=== PATIENT | female | born 1995 | race Caucasian/White ===

== ENCOUNTER 2019-12-28 10:43 | Emergency (ER) | payer SELFPAY ==
[2019-12-28 10:47] VITALS: BP 113/72; PULSE 68; RESP 17; TEMP 36.4; O2SAT 100; BMI 22.3
--- NOTE | 2019-12-28 11:05 | ED_ITS ---
HPI - General Adult General: Chief complaint: General Medical Stated complaint: LOW BLOOD PRESSURE, CHEST PAIN Time Seen by Provider: 12/28/19 11:05 History of Present Illness: HPI narrative: 24-year-old female presents emergency room after near syncopal episode she denies any chest pain that began immediately after she had stood up. She has had this multiple times in the past. She is had work-up for it in years past with not been able to find anything. In discussing with her though that she has not seen cardiology for this previously usually associated with stress or immediately after standing. She is relatively asymptomatic on arrival here Associated symptoms: Deny chest pain, dyspnea, malaise, nausea, rash or vomiting Review of Systems Const: Denies: fever, chills, body aches, change in appetite, fatigue or malaise ENMT: Denies: throat pain, ear pain, nasal discharge or nasal congestion Card: Denies: chest pain, edema, shortness of breath on exertion or shortness of breath when lying down Resp: Denies: shortness of breath, productive cough or non-productive cough GI: Denies: abdominal pain, nausea, vomiting, vomiting blood, coffee grounds in vomit, diarrhea, constipation, bloating, blood in stool or black tarry stool : Denies: flank pain, difficulty urinating, painful urination, urinary frequency or urinary urgency Skin/Breast: Denies: rash or itching PFSH ED PFSH: Social History Smoking and tobacco status: never smoked Physical Exam Const: COMMON NORMALS: no apparent distress GENERAL APPEARANCE: cooperative and comfortable ORIENTATION/CONSCIOUSNESS: Yes awake, Yes oriented to person, Yes oriented to place and Yes oriented to time HENMT: COMMON NORMALS: normocephalic, head/scalp atraumatic, hearing grossly normal bilaterally, external ears normal, EAC's normal, TM's normal bilaterally, nasal mucous membranes and turbinates normal, moist oral mucous membranes and oropharynx normal HEAD & SCALP: normocephalic and atraumatic NOSE: nasal mucous membranes and turbinates normal EXTERNAL EAR: Yes external ears normal EXTERNAL AUDITORY CANAL: EAC's normal TYMPANIC MEMBRANE: TM's normal bilaterally Eye: COMMON NORMALS: PERRL, EOMs intact bilaterally, conjunctivae normal and no scleral icterus CONJUNCTIVA: Yes conjunctivae normal PUPIL: Yes PERRL Neck/C-Spine: COMMON NORMALS: full ROM, no lymphadenopathy, supple and no JVD Lymph: LYMPHATIC: no lymphadenopathy noted and no lymphedema noted Resp: COMMON NORMALS: normal respiratory effort, no retractions, no use of accessory muscles and clear to auscultation bilaterally AUSCULTATION: clear to auscultation bilaterally Cardio: COMMON NORMALS: no JVD, regular rate, regular rhythm and no murmurs RATE: regular rate RHYTHM: regular rhythm GI: COMMON NORMALS: soft to palpation and no hepatosplenomegaly AUSCULTATION: Yes normoactive bowel sounds PALPATION: Yes soft, No tender, No guarding and Yes no hepatosplenomegaly Extremity: COMMON NORMALS: normal to inspection, normal capillary refill, no clubbing, cyanosis or edema, no calf tenderness and no pedal edema Neuro: SENSORIUM/ORIENTATION: Yes oriented to person, Yes oriented to place and Yes oriented to time Skin: COMMON NORMALS: no rashes or lesions noted GENERAL SKIN EXAM: no rashes or lesions noted Course ED course: Patient essentially asymptomatic now discussed different options I think she can go home she is wanting to consider having children in the near future recommend that she have further work-up including possible cardiac pathology evaluation to have this thoroughly evaluated prior to becoming . Vital Signs: Vital signs: Vital Signs Temperature 97.6 F 12/28/19 10:47 Pulse Rate 90 12/28/19 12:54 Respiratory Rate 16 12/28/19 12:54 Blood Pressure 125/76 12/28/19 12:54 Pulse Oximetry 100 12/28/19 12:54 MDM - General Adult Lab Data: Labs: Lab Results 12/28/19 12/28/19 12/28/19 Range/Units 11:27 11:27 11:34 WBC 8.7 (4.0-10.0) 10^3/ uL RBC 4.59 (4.1-5.3) 10^6/u L Hgb 14.0 (11.5-15.3) g/dL Hct 42.4 (37.0-47.0) % MCV 92.4 (81-99) fL MCH 30.5 (28.0-34.0) pg MCHC 33.0 (30.0-36.0) g/dL RDW 12.4 (12.1-15.1) % Plt Count 250 (130-400) 10^3/c mm MPV 10.9 H (7.4-10.4) fL Neut % (Auto) 60.0 % Lymph % (Auto) 31.4 % Mcdonough % (Auto) 6.1 % Eos % (Auto) 1.8 % Baso % (Auto) 0.2 % Neut # (Auto) 5.2 (1.8-7.7) 10^3/u L Lymph # (Auto) 2.7 (0.8-4.8) 10^3/u L Mcdonough # (Auto) 0.5 (0.2-0.9) 10^3/u L Eos # (Auto) 0.2 (0.0-0.8) 10^3/u L Baso # (Auto) 0.0 (0.0-0.1) 10^3/u L Nucleated RBC % (a uto) 0 % Nucleated RBCs # 0.0 /100WBC Sodium (136-145) mmol/L Potassium (3.5-5.1) mmol/L Chloride (98-107) mmol/L Carbon Dioxide (22-29) mmol/L Anion Gap (5-19) BUN (6-20) mg/dL Creatinine (0.5-0.9) mg/dL GFR Calculation (90-130) mL/min Glucose (65-115) mg/dL Calcium (8.5-10.5) mg/dL Total Bilirubin (0.15-1.2) mg/dL AST (0-32) U/L ALT (0-33) U/L Alkaline Phosphata se (35-105) IU/L Total Protein (6.6-8.7) g/dL Albumin (3.5-5.2) g/dL Globulin (1.3-4.6) g/dL HCG, Qual Negative (Negative) Urine Color Yellow (Yellow) Urine Appearance Clear (CLEAR) Urine pH 5 (5-7) Ur Specific Gravit y 1.025 (1.005-1.030) Urine Protein 1+ H (Negative) Urine Glucose (UA) Norm (Normal) Urine Ketones Negative (Negative) Urine Blood Neg (Negative) Urine Nitrate Negative (Negative) Urine Bilirubin Neg (NEGATIVE) Urine Urobilinogen Norm (Negative) mg/dL Ur Leukocyte Eva ase Negative (Negative) Urine RBC None (0-2) /hpf Urine WBC 0-4 H (0-5) /hpf Ur Squamous Epith Cells 5-10 H (0-5) Urine Bacteria 1+ H (NONE) Urine Mucus 2+ 02/ Range/Units 11:34 WBC (4.0-10.0) 10^3/ uL RBC (4.1-5.3) 10^6/u L Hgb (11.5-15.3) g/dL Hct (37.0-47.0) % MCV (81-99) fL MCH (28.0-34.0) pg MCHC (30.0-36.0) g/dL RDW (12.1-15.1) % Plt Count (130-400) 10^3/c mm MPV (7.4-10.4) fL Neut % (Auto) % Lymph % (Auto) % Mcdonough % (Auto) % Eos % (Auto) % Baso % (Auto) % Neut # (Auto) (1.8-7.7) 10^3/u L Lymph # (Auto) (0.8-4.8) 10^3/u L Mcdonough # (Auto) (0.2-0.9) 10^3/u L Eos # (Auto) (0.0-0.8) 10^3/u L Baso # (Auto) (0.0-0.1) 10^3/u L Nucleated RBC % (a uto) % Nucleated RBCs # /100WBC Sodium 136 (136-145) mmol/L Potassium 3.7 (3.5-5.1) mmol/L Chloride 98 (98-107) mmol/L Carbon Dioxide 26 (22-29) mmol/L Anion Gap 15.7 (5-19) BUN 15 (6-20) mg/dL Creatinine 0.7 (0.5-0.9) mg/dL GFR Calculation 103.7 (90-130) mL/min Glucose 103 (65-115) mg/dL Calcium 10.1 (8.5-10.5) mg/dL Total Bilirubin 0.6 (0.15-1.2) mg/dL AST 21 (0-32) U/L ALT 17 (0-33) U/L Alkaline Phosphata se 83 (35-105) IU/L Total Protein 8.6 (6.6-8.7) g/dL Albumin 5.0 (3.5-5.2) g/dL Globulin 3.6 (1.3-4.6) g/dL HCG, Qual (Negative) Urine Color (Yellow) Urine Appearance (CLEAR) Urine pH (5-7) Ur Specific Gravit y (1.005-1.030) Urine Protein (Negative) Urine Glucose (UA) (Normal) Urine Ketones (Negative) Urine Blood (Negative) Urine Nitrate (Negative) Urine Bilirubin (NEGATIVE) Urine Urobilinogen (Negative) mg/dL Ur Leukocyte Eva ase (Negative) Urine RBC (0-2) /hpf Urine WBC (0-5) /hpf Ur Squamous Epith Cells (0-5) Urine Bacteria (NONE) Urine Mucus Discharge Plan Discharge Patient Disposition: Home, Self-Care Clinical Impression: Near syncope Condition: Stable Prescriptions: No Action melatonin 10 mg Tablet 10 mg PO BEDTIME RF: 0 1 tab PO DAILY RF: 0 Discharge Orders: Discharge Order (Routine); Ordered 12/28/19 Ordered By: Krzysztof Mena Referrals: May Salazar DO [Primary Care Provider] - Activity Restrictions/Additional Instructions: Follow-up with your primary care provider within the next week. Return if has further problems. 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
--- NOTE | 2019-12-28 11:11 | PC.NURSE ---
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 States she began to have familiar symptoms of feeling sick, light headed, and seeing black spots/floaters in her eyes. Patient states she has done this before. Patient states she also felt like she was going to puke and have diarrhea at the same time but did not. Patient was taken by clinic staff and sat down, her BP at that time was 80/60. She states her symptoms are better since arrival but she is unsure why she has had them. Will continue to monitor.
[2019-12-28 11:21] VITALS: BP 118/74; PULSE 69; RESP 18; O2SAT 98
[2019-12-28 11:30] VITALS: BP 107/72; BP 118/74; BP 118/75; PULSE 63; PULSE 66; PULSE 94
[2019-12-28 11:32] VITALS: BP 137/80; PULSE 72; RESP 16; O2SAT 98
[2019-12-28 11:41] LABS: Basophils % 0.2 %; Eosinophils # 0.2 10^3/uL (0.0-0.8); Eosinophils % 1.8 %; Hematocrit 42.4 % (37.0-47.0); Lymphocytes # 2.7 10^3/uL (0.8-4.8); Lymphocytes % 31.4 %; Mean Corpuscular Hemoglobin 30.5 pg (28.0-34.0); Mean Corpuscular Volume 92.4 fL (81-99); Mean Platelet Volume 10.9 fL (7.4-10.4); Monocytes # 0.5 10^3/uL (0.2-0.9); Monocytes % 6.1 %; Neutrophils # 5.2 10^3/uL (1.8-7.7); Nucleated Red Blood Cells % 0 %; Platelet Count 250 10^3/cmm (130-400); Red Blood Count 4.59 10^6/uL (4.1-5.3); Red Cell Distribution Width 12.4 % (12.1-15.1); White Blood Count 8.7 10^3/uL (4.0-10.0)
[2019-12-28 11:41] LABS: HCG Qualitative Urine. Negative (Negative)
[2019-12-28 11:42] LABS: Add Urine Microscopic? YES; Bilirubin Urine Neg (NEGATIVE); Blood Urine Neg (Negative); Glucose Urine UA Norm (Normal); Ketones Urine Negative (Negative); Leukocyte Esterase Urine Negative (Negative); Nitrate Urine Negative (Negative); Protein Urine 1+ (Negative); Specific Gravity, Urine 1.025 (1.005-1.030); Urine Appearance Clear (CLEAR); Urine Color Yellow (Yellow); Urobilinogen Urine Norm (Negative); pH Urine 5 (5-7)
[2019-12-28 11:51] LABS: Bacteria Urine 1+; Mucus Urine 2+
[2019-12-28 11:53] LABS: Add Urine Culture? No; WBC Urine 0-4 /hpf (0-5)
[2019-12-28] MEDS: sodium chloride 0.9% 1,000 ML 999 ML IV (11:54)
[2019-12-28 11:59] LABS: Alanine Aminotransferase 17 U/L (0-33); Alkaline Phosphatase 83 IU/L (35-105); Anion Gap 15.7 (5-19); Aspartate Amino Transferase 21 U/L (0-32); Blood Urea Nitrogen 15 mg/dL (6-20); Calcium 10.1 mg/dL (8.5-10.5); Carbon Dioxide 26 mmol/L (22-29); Chloride 98 mmol/L (98-107); Globulin 3.6 g/dL (1.3-4.6); Glomerular Filtration Rate 103.7 mL/min (90-130); Glucose 103 mg/dL (65-115); Potassium 3.7 mmol/L (3.5-5.1); Sodium 136 mmol/L (136-145); Total Bilirubin 0.6 mg/dL (0.15-1.2); Total Protein 8.6 g/dL (6.6-8.7)
--- NOTE | 2019-12-28 12:04 | XR_ITS ---
WS: [id number] XR chest 1V portable [id number] REASON FOR EXAM: chest pain FINDINGS: Calcified granulomas are noted in both lung sheehan similar to the previous exam March 13, 2019 . The heart and mediastinal interfaces are normal. The lung sheehan are well aerated. There is no evidence of pneumothorax, pleural reaction, pulmonary e mariam, pleural effusion, or mass effect. There is evidence of calcification over the left hemidiaphrag m history of asbestos should be ruled out. The hilum and apices are normal. XR/XR chest 1V portable [id number] IMPRESSION: No active cardiopulmonary changes. There is calcification over the left hemidiaphragm search for a history of asbe stosis should be ruled out. There is no acute findings in the lungs.
--- NOTE | 2019-12-28 12:04 | ECG_ITS ---
Measurements Intervals [place] Rate: 66 P: 55 NM: 169 QRS: 51 QRSD: 80 T: 45 QT: 385 QTc: 405 SINUS RHYTHM POSSIBLE LEFT ATRIAL ENLARGEMENT [-0.1mV P WAVE IN V1/V2] LOW QRS VOLTAGE IN PRECORDIAL LEADS [QRS DEFLECTION < 1.0 mV IN CHEST LEADS] Compared to ECG 03/13/2019 04:01:22 Low QRS voltage now present Sinus bradycardia no longer present Electronically Signed On 12-28-2019 14:13:37 LAND INSPECTOR by Arslan Liang M.D. [id number]
[2019-12-28 12:54] VITALS: BP 125/76; PULSE 90; RESP 16; O2SAT 100
--- NOTE | 2019-12-28 14:28 | DCPLANNER ---
clothing manager was asked to refer patient [facility]. clothing manager called patient, and patient stated that she did not want to be referred to [facility] at this time, that she will follow up with primary care.
== END 2019-12-28 12:55 | disposition home or self-care (01) ==
PROVIDERS: Emergency Provider Family Medicine; Family Provider Family Medicine; PCP Family Medicine
DX: R55 Syncope and collapse (principal)
CPT/HCPCS: 36415; 71045; 80053; 81001; 81025; 85025; 93005; 96360; 99283; A9270; J7030

== ENCOUNTER 2020-02-04 08:33 | Outpatient (CLI) | payer SELFPAY ==
--- NOTE | 2020-02-04 08:45 | US_ITS ---
WS: [id number] RIGHT UPPER QUADRANT ULTRASOUND HISTORY: right quadrant pain COMPARISON: None available. Liver: 13.9 cm in length. Normal size and echogenicity with no intrahepatic dilatation. No mass. Gallbladder: Normally distended gallbladder with no stones or wall thickening. CBD: 0.4 cm Pancreas: Normal size and echogenicity. Right kidney: 10.7 cm in length. Normal echogenicity with no mass or hydronephrosis. Aorta and IVC: Unremarkable. No ascites. US/US abdomen limited [id number] IMPRESSION: Normal RIGHT upper quadrant ultrasound. No abnormality around the umbilicus.
== END 2020-02-04 08:34 | disposition home or self-care (01) ==
LOC: RADWPI 08:38
PROVIDERS: Family Provider Family Medicine; PCP Nurse Practitioner; Visit Provider Surgery
DX: R10.11 Right upper quadrant pain (principal)
CPT/HCPCS: 76705

== ENCOUNTER → 2020-09-18 11:54 | Outpatient (BNVA) | payer OTHER, SELFPAY | PROVIDERS: Family Provider Family Medicine; PCP Nurse Practitioner; Visit Provider Nurse Practitioner Family | DX: Z20.828 Contact with and (suspected) exposure to other viral communicable diseases (principal) | CPT/HCPCS: 87635 ==

== ENCOUNTER 2021-02-24 09:56 | Observation (INO) | payer OTHER, SELFPAY ==
[2021-02-24] VITALS (14 sets, daily range): BP systolic 94–123; BP diastolic 56–78; PULSE 65–124; RESP 13–22; TEMP 36.5–37.5; O2SAT 96–100; BMI 20.1
--- NOTE | 2021-02-24 10:17 | CT_ITS ---
WS: [id number] CT ABDOMEN PELVIS TECHNIQUE: Contrast-enhanced CT of the abdomen and pelvis with coronal and sagittal reformatted image s. CLINICAL INFORMATION: abd pain COMPARISON: CT chest abdomen pelvis 8 [id number] and ultrasound February 04, 2020 DLP: 949.[address] scans at use at least one of these dose optimization techniques: automat ed exposure control; mA and/or kV adjustment per patient size (includes targeted exams where dose is matched to clinical indication); or iterative reconstruction. FINDINGS: Normal liver. Normal portal vein and hepatic vein. Normal gallbladder. Normal spleen. Normal GE junct ion. Lung bases are well aerated. Adrenal glands are normal. Normal renal parenchymal enhancement. No hydronephrosis. Normal pancreas. Normal gallbladder. Small amount of free fluid in the pelvis. Physiologic uterine enhancement. Bilate ral ovarian cysts. Peripheral enhancing right ovarian cyst measuring 1.5 CM. Mild sigmoid constipatio n. No evidence of high-grade small or large bowel obstruction. Normal ileocecal valve. Appendix is no t well visualized. No evidence of acute appendicitis. CT/CT abdomen pelvis w con* [id number] IMPRESSION: 1. Small amount of free fluid in the pelvis. Heterogeneous physiologic uterine enhancement. 2. Peripheral enhancing right ovarian cyst measuring 1.5 cm 3. No hydronephrosis in either kidney. 4. Appendix is not definitely visualized but no evidence of acute appendicitis . Notified Krzysztof Mena DO at 02/24/2021 11:30 AM.
--- NOTE | 2021-02-24 10:19 | ED_ITS ---
HPI - Abdominal Pain General: Chief Complaint: Abdominal Pain Stated Complaint: R SIDE PAIN/TENDERNESS Time Seen by Provider: 02/24/21 10:17 History of Present Illness: HPI narrative: 25-year-old female who presents emergency room with complaint of abdominal pain. She has right lower quadrant abdominal pain was seen earlier today by Dr. Luong's office has a white count of 18,000 with focal pain McBurney's point her beta-hCG was negative on a urine test. Nausea no vomiting no diarrhea no shortness of breath or chest pain no recent upper respiratory infection symptoms MD elicited complaint: abdominal pain Onset (ago): day(s) Pain Consistency: constant Location: Periumbilical Severity: moderate Quality: stabbing Radiation: none Migration to: RLQ Exacerbating factors: movement Relieving factors: rest Associated Symptoms: Reports anorexia, bloating, GI cramping, nausea, poor appetite and vomiting; Denies belching, change in bowel habits, change in stool character, chills, coffee ground emesis, constipation, diarrhea, dyspepsia, dysuria, excessive flatus, fever(s), heartburn, hematochezia, hematuria, hematemesis, fecal incontinence, loose stools, melena and syncope Review of Systems Const: Denies: fever(s) or chills ENMT: Denies: throat pain, ear or mastoid pain, nasal discharge or nasal congestion Card: Denies: chest pain, edema, dyspnea on exertion or orthopnea Resp: Denies: dyspnea, productive cough or non-productive cough GI: Reports: nausea, vomiting, bloating and GI cramping; Denies: hematemesis, coffee ground emesis, heartburn, diarrhea, constipation, belching, excessive flatus, fecal incontinence, change in bowel habits, change in stool character, hematochezia or melena : Denies: dysuria or hematuria Skin/Breast: Denies: rash or pruritus PFSH ED PFSH: Medical History Complete tear of wrist ligament History of fracture of nasal bone Surgical History S/P laparoscopic appendectomy (02/24/21) Family History Grandfather Cancer Diabetes Denies family history of Anesthesia complication Social History Alcohol intake: never Physical Exam Const: COMMON NORMALS: no acute distress GENERAL APPEARANCE: cooperative and comfortable ORIENTATION/CONSCIOUSNESS: Yes awake, Yes oriented to person, Yes oriented to place and Yes oriented to time HENMT: COMMON NORMALS: normocephalic, atraumatic and hearing grossly normal bilaterally HEAD & SCALP: normocephalic and atraumatic Neck/C-Spine: COMMON NORMALS: no JVD Resp: COMMON NORMALS: normal respiratory effort, No retractions, No use of accessory muscles and clear to auscultation bilaterally AUSCULTATION: clear to auscultation bilaterally Cardio: COMMON NORMALS: no JVD, regular rate, regular rhythm and No murmurs present (Cardio) RATE: regular rate RHYTHM: regular rhythm GI: COMMON NORMALS: No hepatosplenomegaly present AUSCULTATION: Yes normoactive bowel sounds PALPATION: Yes Tenderness to palpation present (GI) Details: RLQ, Yes Guarding due to palpation present (GI) in the RLQ and Yes No hepatosplenomegaly present Extremity: COMMON NORMALS: normal to inspection, capillary refill normal, no clubbing, cyanosis or edema, no calf tenderness and no pedal edema Neuro: SENSORIUM/ORIENTATION: Yes oriented to person, Yes oriented to place and Yes oriented to time Skin: COMMON NORMALS: no rashes or lesions noted GENERAL SKIN EXAM: no rashes or lesions noted Course Vital Signs: Vital signs: Vital Signs Temperature 98.1 F 02/25/21 13:44 Pulse Rate 70 02/25/21 13:44 Respiratory Rate 12 02/25/21 13:44 Blood Pressure 98/63 02/25/21 13:44 Pulse Oximetry 100 02/25/21 13:44 MDM - Abdominal Pain MDM Narrative: Medical decision making narrative: Reviewed the CT findings the patient she still has fluid in her pelvis likely from her recent. However I am still quite concerned she has appendicitis. Is difficult to see on the CT because there is not enough intraperitoneal fat surrounding it to show significant inflammation. However her pain is progressively getting worse and on serial exam she is definitely worsened given her pain medications with moderate relief. Discussed with Dr. Cazares given her white count progressive worsening the CT findings we will go ahead and admit her for acute appendicitis. Lab Data: Labs: Lab Results 02/24/21 02/24/21 Range/Units 10:40 10:40 Sodium 136 (136-145) mmol/L Potassium 3.9 (3.5-5.1) mmol/L Chloride 100 (98-107) mmol/L Carbon Dioxide 24 (22-29) mmol/L Anion Gap 15.9 (5-19) BUN 8 (6-20) mg/dL Creatinine 0.5 (0.5-0.9) mg/dL GFR Calculation 151.6 H (90-130) mL/min Glucose 99 (65-115) mg/dL Calculated Osmolal ity 280 L (285-295) mOsm/k g Calcium 9.0 (8.5-10.5) mg/dL Total Bilirubin 1.0 (0.15-1.2) mg/dL AST 22 (0-32) U/L ALT 15 (0-33) U/L Alkaline Phosphata se 68 (35-105) IU/L Total Protein 7.7 (6.6-8.7) g/dL Albumin 4.6 (3.5-5.2) g/dL Globulin 3.1 (1.3-4.6) g/dL Lipase 20 (13-60) U/L Urine HCG, Qual Cancelled Discharge Plan Discharge Patient Disposition: Placed in Observation Admit Provider: Benito Cazares Clinical Impression: Acute appendicitis Coding Level of Care Code 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
--- NOTE | 2021-02-24 10:46 | PC.NURSE ---
Taken to CT
[2021-02-24] MEDS: morphine 4 mg/mL SDV 1 mL IVP (10:53)
[2021-02-24] MEDS: sodium chloride 0.9% 1,000 ML 999 ML IV (10:53)
[2021-02-24] MEDS: ondansetron 2 mg/ML SDV 2 mL 4 MG IVP (10:54)
[2021-02-24 11:18] LABS: Alanine Aminotransferase 15 U/L (0-33); Albumin Level 4.6 g/dL (3.5-5.2); Alkaline Phosphatase 68 IU/L (35-105); Anion Gap 15.9 (5-19); Aspartate Amino Transferase 22 U/L (0-32); Blood Urea Nitrogen 8 mg/dL (6-20); Carbon Dioxide 24 mmol/L (22-29); Chloride 100 mmol/L (98-107); Globulin 3.1 g/dL (1.3-4.6); Glomerular Filtration Rate 151.6 mL/min (90-130); Glucose 99 mg/dL (65-115); Lipase 20 U/L (13-60); Osmolality Calculated 280 mOsm/kg (285-295); Potassium 3.9 mmol/L (3.5-5.1); Sodium 136 mmol/L (136-145); Total Protein 7.7 g/dL (6.6-8.7)
--- NOTE | 2021-02-24 11:22 | US_ITS ---
WS: [id number] ULTRASOUND PELVIS TECHNIQUE: Transvaginal. CLINICAL INFORMATION: pain LMP: February 10, 2021 : No. COMPARISON: None. FINDINGS: Uterus Orientation: Anteverted. Size: 7.2 x 7.9 x 3.7 Masses: None. Cervix: Normal. Endometrium: Normal. Endometrium thickness: 0.55 cm. Adnexa: Right corpus luteum cyst measuring 1.3 x 1.2 cm. Multiple follicular ovaries bilaterally. Right ovary size: 4.4 x 3.8 x 2.9 cm. Left ovary size: 3.3 x 1.4 x 2.6 cm. Free fluid: Present Other findings: None. US/US transvaginal [id number] IMPRESSION: 1. Normal uterus and endometrium. 2. Small amount of free fluid in the cul-de-sac. 3. Corpus luteum cyst right ovary corresponds to the CT findings. 4. Normal left ovary. 5. Normal cervix.
--- NOTE | 2021-02-24 12:23 | US_ITS ---
WS: [id number] ULTRASOUND ABDOMEN LIMITED CLINICAL INFORMATION: LOWER QUAD PAIN COMPARISON: None. FINDINGS: Limited ultrasound right lower quadrant. No evidence of acute appendicitis. No noncompressible bowel. Bowel gas is noted in the right lower quadrant. US/US abdomen limited [id number] IMPRESSION: Appendix not visualized but no evidence of acute appendicitis.
[2021-02-24] MEDS: HYDROmorphone 1 mg/mL INJ 1 mL 0.5 MG IVP (13:47)
[2021-02-24] MEDS: promethazine 25 mg/mL SDV 1 mL IM (15:40)
--- NOTE | 2021-02-24 15:51 | PC.NURSE ---
pt report called to Julieta ORLANDO in SBAR format.
[2021-02-24] MEDS: ketorolac 30 mg/mL INJ IVP (16:35)
[2021-02-24] MEDS: D5-NS 0.45% + KCL 20 mEq 20 MEQ/1,000 ML BAG 100 MEQ IV (18:05)
--- NOTE | 2021-02-24 19:07 | PM.HP ---
Providers/Chief Complaint Admitting Physician: Benito Cazares MD Chief Complaint: R SIDE PAIN/TENDERNESS History of Present Illness Vicki Soler is a 25 year old female who works at [employer]. Patient states that she developed right lower quadrant pain yesterday afternoon after she had lunch and subsequently the pain progressively worsened during the course of the day. This was associated with nausea and vomiting. The pain is cramping in nature, did not radiate, no aggravating or relieving factors. She had some chills but denies any fevers. No constipation or diarrhea. Patient denies any urinary symptoms. She denies any history of UTI, PID, or foul-smelling vaginal discharge. Patient also complains of loss of appetite. Review of Systems General: Reports: 10 or more systems reviewed and unremarkable except in HPI and below Medications/Allergies Home Medications Medication Instructions Recorded Confirmed Last Taken Type melatonin 10 mg PO BEDTIME PRN 12/28/19 02/24/21 12/26/19 History calcium carbonate [Tums] 200 mg PO QID PRN 02/24/21 02/24/21 02/23/21 History Allergies Allergy/AdvReac Type Severity Reaction Status Date / Time tramadol Allergy ADR-Itching Verified 02/24/21 10:15 PFSH Acute PFSH: Medical History (Updated 02/24/21 @ 19:15 by Benito Cazares MD) Complete tear of wrist ligament History of fracture of nasal bone Family History Grandfather Cancer Diabetes Denies family history of Anesthesia complication Social History Alcohol intake: never Female Reproductive History: Date of last menstrual period: 02/14/21 Vitals/I&O/Wt Last Vital Signs Temp 99.5 F 02/24/21 17:00 Pulse 83 02/24/21 17:00 Resp 17 02/24/21 17:00 BP 111/70 02/24/21 17:00 Pulse Ox 98 02/24/21 17:00 02/24/21 02/24/21 02/24/21 06:59 14:59 22:59 Intake Total 1000 / 1000 Balance 1000 / 1000 Weight last 48 hrs Weight 121 lb Physical Exam Narrative: EXAM NARRATIVE: HEENT: Normocephalic Eye: Sclera /conjunctiva normal Respiratory and chest: Bilateral clear breath sounds on auscultation Cardiovascular: Normal S1 and S2 heart sounds Abdomen: Soft to palpation, tender right lower quadrant, voluntary guarding present, no rigidity Neurological: Oriented to place person and time Skin: Intact, no lesions appreciated on gross exam Data : 02/24/21 10:40 A&P Assessment and plan (1) Right lower quadrant pain: 25-year-old female who presents with 24-hour history of right lower quadrant pain, nausea, vomiting, chills and loss of appetite. Patient is exquisitely tender in the right lower quadrant. I reviewed the labs and the patient. Abdominal ultrasound: Appendix not visualized, evidence of acute appendicitis Transvaginal ultrasound: Normal uterus, endometrium, corpus luteal cyst right ovary, normal left ovary and cervix, small amount of free fluid in cul-de-sac CT abdomen pelvis: Small amount of free fluid in the pelvis with 1.5 cm right ovarian cyst, appendix not visualized, no evidence of acute appendicitis Discussed the patient's symptoms, imaging findings with the patient, her partner and her mother over the phone offered the option of observation with repeat labs in the morning versus diagnostic laparoscopy. I discussed the risks, benefits of surgical intervention versus observation. The patient and her mother would like to proceed with laparoscopy, possible appendectomy since her pain has been worsening during the course of the day today. 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
[2021-02-24 19:51] LABS: HCG Qualitative Urine. Negative (Negative)
--- NOTE | 2021-02-24 22:07 | P.ANESASSM_ITS ---
Pre-Anesthetic Assessment Pre-Anesthetic Assessment: Height/Weight: Height 1.65 m Weight 54.885 kg Temp Pulse Resp BP Pulse Ox 98.7 F 80 14 105/71 97 02/24/21 19:00 02/24/21 19:00 02/24/21 19:00 02/24/21 19:00 02/24/21 19:00 Preop Diagnosis: Right lower quadrant pain Proposed Procedure: Operation Date: 02/24/21 20:05 Proposed Procedures p Laparoscopic Appendectomy(Not Applicable) - Benito Cazares MD Was Beta Neil taken within 24 hours: N/A Was Clonidine taken within 24 hours: N/A Last intake: Intake Last Liquid Date 02/23/21 Last Liquid Time 12:00 Last Solid Date 02/23/21 Last Solid Time 12:00 Social: Social History: No alcohol and No tobacco Exam: Pre-Anes Outpt Exam: alert, oriented x 3, clear to auscultation bilatera lly and regular rate & rhythm Airway: Submandibular: WNL Cervical ROM: WNL MP: 2 Dentition: Full History/ROS: No significant history except as noted GI: Comments: Abdominal pain Anesthetic Plan: ASA status: 1 Anesthesia: General Risk of > 500 ml blood loss (7ml/kg in children): No Meds/Allergies Current Medications: Current Medications Generic Name Dose Route Start Last Admin Trade Name Freq PRN Reason Stop Dose Admin Potassium Chloride /Dextrose/Sod Cl 20 meq in 1,000 m ls @ 100 mls/hr 02/24/21 16:59 02/24/21 18:05 D5-Ns 0.45% + Yasir l 20 Meq IV 100 mls/hr .Q10H TOMMY Administration PFSH Anesthesia PFSH: Medical History (Updated 02/24/21 @ 19:15 by Benito Cazares MD) Complete tear of wrist ligament History of fracture of nasal bone Family History Grandfather Cancer Diabetes Denies family history of Anesthesia complication Social History Alcohol intake: never Female Reproductive History: Date of last menstrual period: 02/14/21 Data Anesthesia CBC & Chem 7: 02/24/21 10:40 Other Labs: Laboratory Results - last 48 hr 02/24/21 02/24/21 02/24/21 10:40 10:40 19:42 Sodium 136 Potassium 3.9 Chloride 100 Carbon Dioxide 24 Anion Gap 15.9 BUN 8 Creatinine 0.5 GFR Calculation 151.6 H Glucose 99 Calculated Osmolality 280 L Calcium 9.0 Total Bilirubin 1.0 AST 22 ALT 15 Alkaline Phosphatase 68 Total Protein 7.7 Albumin 4.6 Globulin 3.1 Lipase 20 HCG, Qual Negative Urine HCG, Qual Cancelled Cardiac Studies: No Data to Display
[2021-02-24] MEDS: piperacillin-tazobactam 3.375 GM in sodium chloride 0.9% (plus) 50 ML IV (22:12)
--- NOTE | 2021-02-24 22:58 | PM.OP ---
Operative Report Date of procedure: February 24, 2021 Pre-op Diagnosis: Right lower quadrant pain Post-op Diagnosis: Acute appendicitis Procedure Done: 1. Laparoscopic appendectomy Pathology: Appendix Surgeon: Benito Cazares Anesthesia: General Condition: stable Disposition: PACU Procedure: The patient was taken to the Operating Room and intubated under general anesthesia after antibiotic had been administered. Using a 15 blade, a 1-cm infraumbilical incision was made and using open Levar technique, the peritoneal cavity was entered. A 12mm port with balloon was placed and 14 mm of pneumoperitoneum was created and 10-mm 30 degree scope was introduced. Two separate 5mm ports were placed in the left and right lower quadrant under direct visualization. The appendix was noted in the right lower quadrant and appeared acutely inflamed. Using [place] forceps, an opening was made in the mesoappendix near the base of the appendix. An Endo GALINDO stapler 45mm long 3.5mm blue load was introduced to divide the appendix at it's base. Using electrocautery, the mesoappendix including the appendicular artery was divided. There was no bleeding noted and the staple line appeared intact. The right lower quadrant was irrigated with saline and an EndoCatch bag was introduced to remove the appendix. All three ports were removed under direct visualization and there was no bleeding noted on the port sites. 10cc of 0.5% Marcaine was infiltrated at the port sites. The fascia at the umbilical port was closed using figure of eight 0-Vicryl sutures and subcutaneous tissue was approximated using 3-0 Vicryl and skin at all 3 port sites was closed using 4-0 Monocryl and Dermabond.
--- NOTE | 2021-02-24 23:17 | PM.PACU ---
PACU note PACU note: Good resp effort Post-Anesthesia Exam: awake and vital signs stable Disposition: back to floor
--- NOTE | 2021-02-24 23:36 | PC.NURSE ---
Patient back to room via OR stretcher. Pt moved to bed via draw sheet and total lift. Pt is alert and oriented. Pt has 4 1cm long incisions to the abdomen. They are located on the left and right lower quadrant as well as an umbilical and supra-pubic area. All wounds appear well approximated there is minimal sero-sanguineous drainage noted to the umbilical incision. A 2x2 dressing was applied. Bowel sounds are present. Initial vital signs were obtained.
[2021-02-25] VITALS (7 sets, daily range): BP systolic 94–98; BP diastolic 50–63; PULSE 70–99; RESP 12–18; TEMP 36.7–37.2; O2SAT 97–100
[2021-02-25] MEDS: ondansetron 2 mg/ML SDV 2 mL 4 MG IVP ×2 (00:09→06:27)
[2021-02-25] MEDS: morphine 4 mg/mL SDV 1 mL IV ×2 (00:10→06:26)
[2021-02-25] MEDS: lactated ringers 1,000 ML 100 ML IV (00:11)
[2021-02-25] MEDS: piperacillin-tazobactam 3.375 GM in sodium chloride 0.9% (plus) 50 ML IV (06:14)
--- NOTE | 2021-02-25 06:41 | ANE.PACU2 ---
Inpatient post-anesthesia follow up: Airway intact: Yes Vital signs: Temperature 98.8 F Pulse Rate [Monito r] 124 Pulse Rate 80 Respiratory Rate 16 Blood Pressure [Le ft Arm] 105/73 Blood Pressure 94/53 Pulse Oximetry 98 Oxygen Delivery Me thod Room Air Oxygen Flow Rate Fraction of Inspir ed Oxygen Hydration adequate: Yes Nausea and vomiting: No Pain level: 2 Mental status: Baseline
[2021-02-25] MEDS: sennosides-docusate Tablet 1 TAB PO (09:05)
[2021-02-25] MEDS: HYDROcodone-acetaminophen 5-325 mg Tablet 1 TAB PO (10:08)
--- NOTE | 2021-02-25 10:26 | PC.CHAP ---
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 [] Patient/Family/Request visit [] Outpatient visit [] Follow-up visit [] Physician referral [] Code/Alert [x] Routine visit [] Staff referral [] Actively dying [] Patient sleeping [] Family support [] [] Out of room [] Palliative care [] [] Receiving care in room [] Pre-surgical visit [] Trauma [] Long length of stay [] ICU visit [] Other: Relational/Emotional Strength [x] Patient feels connected with others/family/visitors/staff [] Distress [] Loneliness/isolation [] Abandonment Spirituality of Patient [x] Person of Bernie [x] Attends Restoration of their Bernie [x] Believes in Prayer [] Reads Bible or Scientologist materials [] There are Spiritual issues to be addressed Livestock Counter Interventions [x] Prayer [x] Active listening [x] Non-anxious presence [x] Spiritual/emotional support [] Crisis/trauma care [] Spiritual counseling [] Bereavement support [] Provided bereavement packet [] Provided Bible/devotional materials [] Provided toy/stuffed animal, coloring book to patient or family member [] Provided Communion [] Anointing/[place] [] Salvation [x] Completed spiritual assessment [] Other: Impact on Illness or Injury [] Angry [] Fearful [] Anxious [] Often cries [] Exhaustion [] Unable to work [] Unable to attend sikhism [] Unable to walk/stand [] Unable to read [] Unable to drive [] Unable to eat/drink [] Unable to sleep [] Unable to be with family [] Patient intubated [] Other: Summary Time spent with patient 15 min
--- NOTE | 2021-02-25 14:40 | P.DS_ITS ---
Discharge Providers Date of Admission: 02/24/21 16:59 Date of Discharge: February 25, 2021 Attending Provider at Admission: Benito Cazares MD Attending Provider at Discharge: Benito Cazares MD Diagnoses at Discharge Discharge Diagnosis (1) Right lower quadrant pain: Status: Resolved Reason for Visit Reason for Visit: R SIDE PAIN/TENDERNESS Hospital Course Hospital Course Vicki Soler is a 25 year old female who works at [employer]. Patient states that she developed right lower quadrant pain yesterday afternoon after she had lunch and subsequently the pain progressively worsened during the course of the day. This was associated with nausea and vomiting. The pain is cramping in nature, did not radiate, no aggravating or relieving factors. She had some chills but denies any fevers. No constipation or diarrhea. Patient denies any urinary symptoms. She denies any history of UTI, PID, or foul-s melling vaginal discharge. Patient also complains of loss of appetite. Patient underwent laparoscopic appendectomy and was admitted overnight for observation. At time of discharge her vital signs are stable, she was tolerating a diet and pain well controlled with oral pain medications. Discharge Data Data Completed and Pending: Completed Studies During Hospitalization Category Date Time Status CT abdomen pelvis w con* [id number] Stat Cat Scan 02/24/21 10:17 Completed US abdomen limite d [id number] Urgent Ultrasound 02/24/21 12:23 Completed US transvaginal 7 [id number] Stat Ultrasound 02/24/21 11:22 Completed Pending at discharge Category Date Time Status ES surgery / GI i mages Routine Exams 02/24/21 20:10 Ordered Pathology: Surgic al [PTH] Routine Pth 02/24/21 22:59 Received Labs from last 24 hours 02/24/21 02/24/21 19:42 10:40 HCG, Qual Negative Urine HCG, Qual Cancelled Vitals: Last Vital Signs Temp 98.1 F 02/25/21 13:44 Pulse 70 02/25/21 13:44 Resp 12 02/25/21 13:44 BP 98/63 02/25/21 13:44 Pulse Ox 100 02/25/21 13:44 Discharge Plan Discharge Patient Disposition: Home Condition: Stable Prescriptions: New Zofran 4 mg tablet 4 mg PO Q6H PRN (Reason: nausea and vomiting) Qty: 20 RF: 0 Colace 100 mg capsule 100 mg PO BID Qty: 30 RF: 0 hydrocodone-acetaminophen 5-325 mg tablet 1 tab PO Q6H PRN (Reason: pain) Qty: 20 RF: 0 Continued melatonin 10 mg Tablet 10 mg PO BEDTIME PRN (Reason: Insomnia) RF: 0 Tums 200 mg calcium (500 mg) Tablet,Chewable 200 mg PO QID PRN (Reason: STOMACH ACID) RF: 0 Discharge Orders: Discharge Order (Routine); Ordered 02/25/21 Ordered By: Benito Cazares Referrals: Benito Cazares MD [Physician] - 03/13/21 9:15 am Patient Instructions: Hydrocodone/Acetaminophen (By mouth), Laxative, Stool Softeners (By mouth), Ondansetron (By mouth), Laparoscopic Appendectomy (DC), Opioid Safety Activity Restrictions/Additional Instructions: Diet Advance to normal diet as tolerated, increase fluid intake as much as possible. Activity Avoid strenuous activity for 2 weeks but continue with daily activities including walking as tolerated. Do not lift more than 10 pounds for 2 weeks Return to work/school You can return to work/ school whenever you feel ready as long as you don?t have to lift more than 10 pounds at work. If you have paperwork that needs to be completed for time off from work, please contact my office Driving You can resume driving once you stop using narcotic pain medications, and transition to non-opioid pain medications like Tylenol, Motrin, Aleve, etc. Medications Pain Take opioid pain medications as prescribed and transition to non-opioid pain medications like Tylenol, Motrin, Aleve etc. over the next few days. The goal of the pain medications is to make the pain bearable and not to be pain free since you recently had surgery. Resume all home medications after surgery as per the medication reconciliation list Nausea Nausea is common after surgery, take nausea medications as needed and stay on a liquid bland diet until nausea resolves. Constipation The combination of surgery, anesthesia and pain medications can result in constipation. Take stool softeners as prescribed. If you do not have a bowel movement in 3 days, please take an [id number] laxative like MiraLAX to address the constipation. Shower It is ok to shower but avoid getting the wound wet for 48 hours after surgery. Do not soak in bathtub, swimming pool or hot tub for 2 weeks. Wound care The glue applied to the incision will peel slowly over the next two weeks. The stitches used are dissolvable and will not need to be removed. Do not apply antibiotics or other medications on the incision Problems with the wound You can develop some redness around the incision from bruising after surgery. If there is increasing pain, redness, tenderness around the incision with or without drainage, please contact my office to rule out an infection. Sometimes the skin at the incisions can separate, resulting in reopening of the wound. Cover the wound with antibiotic cream and sterile dressings and contact my office. Contact physician Call the office at [phone] during office hours or go the Emergency Room after hours for - ?Fever to 100.4 or greater ?Shaking chills ?Pain that increases over time ?Redness, warmth, or pus draining from incision sites ?Persistent nausea or inability to take in liquids Discharge Attestations Time Spent in Discharge Care*: less than 30 min Quality Metrics Clinical Quality Measures During this hospital stay, did patient experience: None Coding Level of Care Code Acute Jarrett ZULUAGA DC note Diagnoses Right lower quadrant pain R10.31
== END 2021-02-25 13:44 | disposition home or self-care (01) ==
LOC: ER 10:29 → MEDSURG 02-25 09:49
PROVIDERS: Admitting Provider Surgery; Emergency Provider Family Medicine; Visit Provider Surgery
PROC: 0DTJ4ZZ Resection of Appendix, Percutaneous Endoscopic Approach (ICD-10-PCS; CPT 44970; principal; 2021-02-24 20:05)
DX: K35.80 Unspecified acute appendicitis (principal)
CPT/HCPCS: 44970; 74177; 76705; 76830; 80053; 81025; 83690; 88304; 96361; 96365; 96372; 96374; 96375; 99285; G0378; J1100; J1170; J1885; J2270; J2405; J2543; J2550; J2704; J2710; J3010; J3490; J7030; Q9967

== ENCOUNTER 2021-03-02 09:09 | Outpatient (CLI) | payer OTHER, SELFPAY ==
--- NOTE | 2021-03-02 09:21 | XR_ITS ---
WS: [id number] Exam: XR chest 2V* [id number] Date/Time of Exam: 03/02/2021 9:37 AM Reason For Exam: Z90.49 - Acquired absence of other specified parts of dig... Comparison 12/28/2019. Findings: The lungs are clear and fully expanded. Costophrenic angles are sharp. No infiltrates. Bronchovascula r relief appears normal. Cardiac silhouette is unremarkable. Bony elements are intact. Scattered calc ified granulomas noted bilaterally. XR/XR chest 2V* [id number] IMPRESSION: Unremarkable chest radiograph.
[2021-03-02 10:20] LABS: Basophils % 0.3 %; Eosinophils # 0.1 10^3/uL (0.0-0.8); Hematocrit 42.3 % (37.0-47.0); Hemoglobin 13.6 g/dL (11.5-15.3); Lymphocytes # 2.7 10^3/uL (0.8-4.8); Lymphocytes % 26.6 %; Mean Corpuscular HGB Conc 32.2 g/dL (30.0-36.0); Mean Corpuscular Volume 93.4 fL (81-99); Mean Platelet Volume 10.8 fL (7.4-10.4); Monocytes # 0.5 10^3/uL (0.2-0.9); Neutrophils # 6.72 10^3/uL (1.8-7.7); Neutrophils % 66.5 %; Nucleated Red Blood Cells % 0 %; Platelet Count 389 10^3/cmm (130-400); Red Blood Count 4.53 10^6/uL (4.1-5.3); Red Cell Distribution Width 11.9 % (12.1-15.1); White Blood Count 10.1 10^3/uL (4.0-10.0)
[2021-03-02 10:27] LABS: Bilirubin Urine Neg (Negative); Blood Urine Neg (Negative); Glucose Urine UA Norm (Normal); Ketones Urine 1+ (Negative); Leukocyte Esterase Urine Negative (Negative); Nitrate Urine Negative (Negative); Protein Urine Neg (Negative); Urine Appearance SL Hazy (CLEAR); Urine Color Yellow (Yellow); Urobilinogen Urine Norm (Negative); pH Urine 5 (5-7)
[2021-03-02 10:41] LABS: Alanine Aminotransferase 76 U/L (0-33); Albumin Level 4.8 g/dL (3.5-5.2); Alkaline Phosphatase 99 IU/L (35-105); Anion Gap 18.7 (5-19); Aspartate Amino Transferase 39 U/L (0-32); Blood Urea Nitrogen 10 mg/dL (6-20); Calcium 9.5 mg/dL (8.5-10.5); Carbon Dioxide 25 mmol/L (22-29); Chloride 99 mmol/L (98-107); Globulin 3.5 g/dL (1.3-4.6); Glomerular Filtration Rate 102.8 mL/min (90-130); Glucose 93 mg/dL (65-115); Lipase 31 U/L (13-60); Osmolality Calculated 285 mOsm/kg (285-295); Potassium 4.7 mmol/L (3.5-5.1); Sodium 138 mmol/L (136-145); Total Bilirubin 0.5 mg/dL (0.15-1.2); Total Protein 8.3 g/dL (6.6-8.7)
[2021-03-02 10:51] LABS: Add Urine Culture? No; Bacteria Urine 1+ /hpf; WBC Urine 0-4 /hpf (0-5)
== END 2021-03-02 09:10 | disposition home or self-care (01) ==
PROVIDERS: Visit Provider Surgery
DX: Z90.49 Acquired absence of other specified parts of digestive tract (principal); R10.9 Unspecified abdominal pain; R42 Dizziness and giddiness
CPT/HCPCS: 36415; 71046; 80053; 81001; 83690; 85025

== ENCOUNTER → 2021-04-09 09:00 | Outpatient (BNVA) | payer OTHER, SELFPAY | PROVIDERS: Visit Provider Nurse Practitioner Women's Health | DX: Z01.419 Encounter for gynecological examination (general) (routine) without abnormal findings (principal) | CPT/HCPCS: 88175 ==

== ENCOUNTER → 2021-04-14 08:19 | Outpatient (BNVA) | payer OTHER, SELFPAY | PROVIDERS: Visit Provider Nurse Practitioner Women's Health | DX: Z00.00 Encounter for general adult medical examination without abnormal findings (principal) | CPT/HCPCS: 82951; 83036; 84402; 84439; 84443 ==

== ENCOUNTER → 2021-04-30 13:15 | Outpatient (BNVA) | payer OTHER, SELFPAY | PROVIDERS: Visit Provider Nurse Practitioner Women's Health | DX: N97.9 Female infertility, unspecified (principal) | CPT/HCPCS: 84146 ==

== ENCOUNTER → 2021-10-16 11:42 | Outpatient (BNVA) | payer OTHER, SELFPAY | PROVIDERS: Visit Provider Nurse Practitioner Women's Health | DX: N92.6 Irregular menstruation, unspecified (principal) | CPT/HCPCS: 84702 ==

== ENCOUNTER 2022-01-11 17:57 | Emergency (ER) | payer OTHER, SELFPAY ==
[2022-01-11 18:13] VITALS: BP 124/87; PULSE 88; RESP 16; TEMP 36.8; O2SAT 99; BMI 21.6
--- NOTE | 2022-01-11 18:27 | CTR_ITS ---
PROCEDURE INFORMATION: Exam: CT Abdomen And Pelvis With Contrast Exam date and time: 01/11/2022 6:27 PM Age: 26 years old Clinical indication: Abdominal pain; Prior surgery; Surgery date: 6+ months; Surgery type: Appy; Patient HX: Ruq pain x4 days TECHNIQUE: Imaging protocol: Computed tomography of the abdomen and pelvis with contrast. Radiation optimization: All CT scans at this facility use at least one of these dose optimization techniques: automated exposure control; mA and/or kV adjustment per patient size (includes targeted exams where dose is matched to clinical indication); or iterative reconstruction. Contrast material: OMNI 300; Contrast volume: 95 ml; Contrast route: INTRAVENOUS (IV); COMPARISON: CT abdomen pelvis w con* [id number] 02/24/2021 11:04 AM RADIATION DOSE METRICS: Total DLP (mGy-cm): 881.97 FINDINGS: Liver: Normal. No mass. Gallbladder and bile ducts: Normal. No calcified stones. No ductal dilation. Pancreas: Normal. No ductal dilation. Spleen: Normal. No splenomegaly. Adrenal glands: Normal. No mass. Kidneys and ureters: Normal. No hydronephrosis. Stomach and bowel: Prominent fluid in the small bowel without dilation suggestive of an enteritis. Appendix: No evidence of appendicitis. Intraperitoneal space: Unremarkable. No free air. No significant fluid collection. Vasculature: Unremarkable. No abdominal aortic aneurysm. Lymph nodes: Unremarkable. No enlarged lymph nodes. Urinary bladder: Unremarkable as visualized. Reproductive: Right ovary 2.2 cm peripherally enhancing cyst suggestive of a partially collapsed follicle. Bones/joints: Unremarkable. No acute fracture. Soft tissues: Unremarkable. Other findings: Small amount nonspecific fluid in the pelvis. CT/CT abdomen pelvis w con* [id number] IMPRESSION: 1. Right ovary 2.2 cm peripherally enhancing cyst suggestive of a partially collapsed follicle. 2. Small amount nonspecific fluid in the pelvis. 3. Prominent fluid in the small bowel without dilation suggestive of an enteritis.
--- NOTE | 2022-01-11 18:44 | ED_ITS ---
HPI - Abdominal Pain General: Chief Complaint: Abdominal Pain Stated Complaint: Abd Pain Uper Right Time Seen by Provider: 01/11/22 18:05 Source: patient Mode of arrival: ambulatory Limitations: no limitations History of Present Illness: 26-year-old female states she has been having right upper quadrant pain over the last 4 to 5 days. States been sharp in nature and rates it a 5 out of 10. Patient was seen at [facility] had normal blood work and had an ultrasound of her gallbladder that was normal but states she is continued to have worsening pain especially in the right upper quadrant is worse with movement and palpation improved with rest. She had some nausea vomiting denies any fever Associated Symptoms: Reports nausea; Denies chills, dysuria and fever(s) Related Data: Date of Last Menstrual Period: 02/14/21 Review of Systems Const: Denies: fever(s), chills, body aches or change in appetite Eyes: Denies: blurry vision or eye discomfort ENMT: Denies: throat pain or dental pain Card: Denies: chest pain Resp: Denies: dyspnea GI: Reports: abdominal pain and nausea : Denies: dysuria Musc: Denies: neck pain or back pain Skin/Breast: Denies: rash Neuro: Denies: headache(s) Psych: Denies: depression Mitesh/Lymph: Denies: easy bruising All/Imm: Denies: urticaria PFSH ED PFSH: Medical History Complete tear of wrist ligament H/O herpes genitalis (~2019) one outbreak History of fracture of nasal bone Surgical History S/P laparoscopic appendectomy (02/24/21) Family History Grandfather Cancer lung? Diabetes Grandmother Dementia Stroke Sister Suicide Attempt Brother Suicide Attempts Hypertension Father Hypertension Mother Hyperlipidemia Denies family history of CAD (coronary artery disease) Clotting disorder Psychiatric illness Chronic kidney disease (CKD) Anesthesia complication Bleeding disorder Family history of premature coronary artery disease Lung disease Female Reproductive History: Date of last menstrual period: 02/14/21 Physical Exam Const: COMMON NORMALS: no acute distress, patient oriented x3 and healthy appearing HENMT: COMMON NORMALS: normocephalic and atraumatic HEAD & SCALP: n ormocephalic and atraumatic Eye: COMMON NORMALS: Equal, round and reactive pupils present and EOMs intact bilaterally PUPIL: Yes Equal, round and reactive pupils present Neck/C-Spine: COMMON NORMALS: full ROM and supple Chest: COMMONS NORMALS: normal inspection of the chest and normal palpation of entire chest wall Resp: COMMON NORMALS: normal respiratory effort, No retractions, No use of accessory muscles and clear to auscultation bilaterally AUSCULTATION: clear to auscultation bilaterally Cardio: COMMON NORMALS: regular rate, regular rhythm and No murmurs present (Cardio) RATE: regular rate RHYTHM: regular rhythm GI: COMMON NORMALS: Normal to inspection, nondistended, normoactive bowel sounds present, Soft to palpation and no masses PALPATION: Yes Soft to palpation and Yes Tenderness to palpation present (GI) Details: RUQ Extremity: COMMON NORMALS: normal to inspection and full ROM Neuro: COMMON NORMALS: patient oriented x3, moves all extremities and no focal motor deficits Psych: COMMON NORMALS: mental status grossly normal, Normal thought process present and cooperative THOUGHT PROCESS: Normal thought process present Skin: COMMON NORMALS: no rashes or lesions noted and no wounds GENERAL SKIN EXAM: no rashes or lesions noted Course Vital Signs: Vital signs: Vital Signs Temperature 98.3 F 01/11/22 18:13 Pulse Rate 88 01/11/22 18:13 Respiratory Rate 16 01/11/22 18:13 Blood Pressure 124/87 01/11/22 18:13 Pulse Oximetry 99 01/11/22 18:13 MDM - Abdominal Pain Medical Decision Making Patient presents here with abdominal pain seems to be her gallbladder CAT scan here is normal blood works all normal no other acute findings on the CT scan we will get her follow-up with surgery and have her return if worsening. Lab Data : 01/11/22 18:39 01/11/22 18:39 Labs/Radiology: Radiology Impressions Abdomen/Pelvis CT 01/11/22 18:27 IMPRESSION: 1. Right ovary 2.2 cm peripherally enhancing cyst suggestive of a partially collapsed follicle. 2. Small amount nonspecific fluid in the pelvis. 3. Prominent fluid in the small bowel without dilation suggestive of an enteritis. Laboratory Results WBC 7.3 10^3/uL (4.0-10.0) 03/07/22 18:39 RBC 4.49 10^6/uL (4.1-5.3) 01/11/22 18:39 Hgb 13.8 g/dL (11.5-15.3) 01/11/22 18:39 Hct 41.2 % (37.0-47.0) 01/11/22 18:39 MCV 91.8 fl (81-99) 01/11/22 18:39 MCH 30.7 pg (28.0-34.0) 01/11/22 18:39 MCHC 33.5 g/dL (30.0-36.0) 01/11/22 18:39 RDW 11.9 % (12.1-15.1) L 01/11/22 18:39 Plt Count 242 10^3/cmm (130-400) 01/11/22 18:39 MPV 11.3 fL (7.4-10.4) H 01/11/22 18:39 Neut % (Auto) 56.9 % 01/11/22 18:39 Lymph % (Auto) 36.3 % 01/11/22 18:39 Andrew % (Auto) 5.2 % 01/11/22 18:39 Eos % (Auto) 1.0 % 01/11/22 18:39 Baso % (Auto) 0.3 % 01/11/22 18:39 Neut # (Auto) 4.17 10^3/uL (1.8-7.7) 01/11/22 18:39 Lymph # (Auto) 2.7 10^3/uL (0.8-4.8) 01/11/22 18:39 Andrew # (Auto) 0.4 10^3/uL (0.2-0.9) 01/11/22 18:39 Eos # (Auto) 0.1 10^3/uL (0.0-0.8) 01/11/22 18:39 Baso # (Auto) 0.0 10^3/uL (0.0-0.1) 01/11/22 18:39 Nucleated RBC % (auto) 0 % 01/11/22 18:39 Nucleated RBCs # 0.0 /100WBC 01/11/22 18:39 Sodium 136 mmol/L (136-145) 01/11/22 18:39 Potassium 3.9 mmol/L (3.5-5.1) 01/11/22 18:39 Chloride 101 mmol/L (98-107) 01/11/22 18:39 Carbon Dioxide 22 mmol/L (22-29) 01/11/22 18:39 Anion Gap 16.9 (5-19) 01/11/22 18:39 BUN 13 mg/dL (6-20) 01/11/22 18:39 Creatinine 0.5 mg/dL (0.5-0.9) 01/11/22 18:39 GFR Calculation 150.3 mL/min (90-130) H 01/11/22 18:39 Glucose 82 mg/dL (65-115) 01/11/22 18:39 Calculated Osmolality 281 mOsm/kg (285-295) L 01/11/22 18:39 Calcium 9.9 mg/dL (8.5-10.5) 01/11/22 18:39 Total Bilirubin 0.5 mg/dL (0.15-1.2) 01/11/22 18:39 AST 14 U/L (0-32) 01/11/22 18:39 ALT 9 U/L (0-33) 01/11/22 18:39 Alkaline Phosphatase 61 IU/L (35-105) 01/11/22 18:39 Total Protein 8.1 g/dL (6.6-8.7) 01/11/22 18:39 Albumin 4.8 g/dL (3.5-5.2) 01/11/22 18:39 Globulin 3.3 g/dL (1.3-4.6) 01/11/22 18:39 Lipase 24 U/L (13-60) 01/11/22 18:39 HCG, Qual Negative (Negative) 01/11/22 18:39 Urine Color Yellow (Yellow) 01/11/22 18:39 Urine Appearance Clear (CLEAR) 01/11/22 18:39 Urine pH 5 (5-7) 01/11/22 18:39 Ur Specific [place] 1.030 (1.005-1.030) 01/11/22 18:39 Urine Protein Neg (Negative) 01/11/22 18:39 Urine Glucose (UA) Norm (Normal) 01/11/22 18:39 Urine Ketones 2+ (Negative) H 01/11/22 18:39 Urine Blood Neg (Negative) 01/11/22 18:39 Urine Nitrate Negative (Negative) 01/11/22 18:39 Urine Bilirubin Neg (Negative) 01/11/22 18:39 Urine Urobilinogen Norm mg/dL (Negative) 01/11/22 18:39 Ur Leukocyte Esterase Negative (Negative) 01/11/22 18:39 Discharge Plan Discharge Patient Disposition: Home Clinical Impression: Abdominal pain Qualifiers: Abdominal location: right upper quadrant Qualified Code(s): R10.11 - Right upper quadrant pain Condition: Stable Prescriptions: New hydrocodone-acetaminophen 5-325 mg tablet 1 tab PO Q6H PRN (Reason: pain) Qty: 14 0RF ondansetron 4 mg tablet,disintegrating 4 mg PO Q6H PRN (Reason: nausea and vomiting) Qty: 14 0RF No Action acetaminophen 500 mg/15 mL liquid 1,000 mg PO Q6H PRN (Reason: Pain) 0RF calcium carbonate [Tums] 200 mg calcium (500 mg) Tablet,Chewable 200 mg PO QID PRN (Reason: STOMACH ACID) 0RF Discharge Orders: Discharge ED (Routine); Ordered 01/11/22 Ordered By: Gardenia Malin Referrals: Benito Cazares MD [Physician] - 1-3 days Discharge Diet: Advance as tolerated Discharge Activity: Resume usual activity Patient Instructions: Abdominal Pain (ED), Opioid Safety Coding Level of Care Code ED Terrazzo Finisher Helper for Chg Fwd Exam Comprehensive
[2022-01-11] MEDS: ondansetron 2 mg/ML SDV 2 mL 4 MG IVP (18:46)
[2022-01-11 18:49] LABS: Add Urine Microscopic? NO; Charge for UA Resulting for Rev
[2022-01-11 18:51] LABS: Basophils % 0.3 %; Eosinophils # 0.1 10^3/uL (0.0-0.8); Hematocrit 41.2 % (37.0-47.0); Hemoglobin 13.8 g/dL (11.5-15.3); Lymphocytes # 2.7 10^3/uL (0.8-4.8); Lymphocytes % 36.3 %; Mean Corpuscular HGB Conc 33.5 g/dL (30.0-36.0); Mean Corpuscular Hemoglobin 30.7 pg (28.0-34.0); Mean Corpuscular Volume 91.8 fl (81-99); Mean Platelet Volume 11.3 fL (7.4-10.4); Monocytes # 0.4 10^3/uL (0.2-0.9); Monocytes % 5.2 %; Neutrophils # 4.17 10^3/uL (1.8-7.7); Neutrophils % 56.9 %; Nucleated Red Blood Cells % 0 %; Platelet Count 242 10^3/cmm (130-400); Red Blood Count 4.49 10^6/uL (4.1-5.3); Red Cell Distribution Width 11.9 % (12.1-15.1); White Blood Count 7.3 10^3/uL (4.0-10.0)
[2022-01-11 18:56] LABS: Bilirubin Urine Neg (Negative); Blood Urine Neg (Negative); Glucose Urine UA Norm (Normal); Ketones Urine 2+ (Negative); Leukocyte Esterase Urine Negative (Negative); Nitrate Urine Negative (Negative); Protein Urine Neg (Negative); Urine Appearance Clear (CLEAR); Urine Color Yellow (Yellow); Urobilinogen Urine Norm (Negative); pH Urine 5 (5-7)
[2022-01-11 19:20] LABS: Alanine Aminotransferase 9 U/L (0-33); Albumin Level 4.8 g/dL (3.5-5.2); Alkaline Phosphatase 61 IU/L (35-105); Anion Gap 16.9 (5-19); Aspartate Amino Transferase 14 U/L (0-32); Blood Urea Nitrogen 13 mg/dL (6-20); Calcium 9.9 mg/dL (8.5-10.5); Carbon Dioxide 22 mmol/L (22-29); Chloride 101 mmol/L (98-107); Globulin 3.3 g/dL (1.3-4.6); Glomerular Filtration Rate 150.3 mL/min (90-130); Glucose 82 mg/dL (65-115); Lipase 24 U/L (13-60); Osmolality Calculated 281 mOsm/kg (285-295); Potassium 3.9 mmol/L (3.5-5.1); Sodium 136 mmol/L (136-145); Total Bilirubin 0.5 mg/dL (0.15-1.2); Total Protein 8.1 g/dL (6.6-8.7)
[2022-01-11 19:23] LABS: HCG, Serum Qual Negative (Negative)
[2022-01-11] MEDS: iohexol 300 mg/mL 100 mL Btl IV (19:38)
--- NOTE | 2022-01-12 09:36 | DCPLANNER ---
Addendum entered by Aimee Birch 01/19/22 06:21: Patient had a follow up appointment scheduled for 01.13.[address] Ulloa at [facility] General Surgery - patient did attend appointment. Original Note: facility operations manager had message to schedule a follow up appointment for patient with general surgery. facility operations manager emailed patients information to both Katty, and Jessica at [facility] General Surgery / ENT clinic. Patients information will be printed and reviewed. Clinic will call patient with appointment information.
== END 2022-01-11 20:24 | disposition home or self-care (01) ==
PROVIDERS: Emergency Provider Emergency Medicine
DX: R10.11 Right upper quadrant pain (principal)
CPT/HCPCS: 74177; 80053; 81003; 83690; 84703; 85025; 96374; 96375; 99283; J2270; J2405; Q9967

== ENCOUNTER → 2022-05-19 12:28 | Outpatient (BNVA) | payer OTHER, SELFPAY | PROVIDERS: Visit Provider Nurse Practitioner Women's Health | DX: Z30.9 Encounter for contraceptive management, unspecified (principal); R10.9 Unspecified abdominal pain | CPT/HCPCS: 87086 ==

== ENCOUNTER 2022-06-15 11:47 | Outpatient (CLI) | payer OTHER, SELFPAY ==
--- NOTE | 2022-06-15 12:17 | XR_ITS ---
WS: [id number] XR KUB [id number] REASON FOR EXAM: R10.9 - Unspecified abdominal pain FINDINGS: No free air or retroperitoneal air. Bowel gas pattern is unremarkable. No urinary tract calculi identified. No mass identified. Unusual irregular linear density in the right upper pelvis of unknown etiology or significance. The a bnormality was present on the CT scan of 01/11/2022 there was not present on a CT scan of the abdomen a nd pelvis 02/24/2021. XR/XR KUB [id number] IMPRESSION: No acute abnormality. Unusual density in the right upper pelvis. If the patient has not had a surgica l procedure since 02/24/2021 to account for the finding, the possibility of rogelio sted radiopaque foreign body extruded into the peritoneal space might be consid ered.
== END 2022-06-15 11:48 | disposition home or self-care (01) ==
LOC: RAD 11:49
PROVIDERS: Visit Provider Nurse Practitioner Women's Health
DX: R10.9 Unspecified abdominal pain (principal)
CPT/HCPCS: 74018; 87086

== ENCOUNTER 2022-06-16 09:28 | Outpatient (CLI) | payer OTHER, SELFPAY ==
--- NOTE | 2022-06-16 10:00 | NM_ITS ---
WS: [id number] NUCLEAR MEDICINE HIDA SCAN WITH GALLBLADDER EJECTION FRACTION HISTORY: R10.9 - Unspecified abdominal pain COMPARISON: Gallbladder ultrasound 01/07/2022 TECHNIQUE: The patient was intravenously injected with 7.6 mCi of TC99m Mebrofenin. Immediate imaging over the right upper quadrant was followed by 5 minute image and additional images for a total of 60 minutes. Normal uptake of radiotracer throughout the liver. Activity identified in the gallbladder at 10 minutes and well distended by 60 minutes. Activity in the proximal small bowel was seen by 60 minutes. Good washout of the radiotracer from the liver by 60 minutes. The patient then drank 8 ounces of Ensure Plus. Ejection fraction at 60 minutes was 55%. Normal GB ej ection fraction is 35-75%. Post fatty meal symptoms: None. NM/NM hepatobiliary w phar* [id number] IMPRESSION: 1. Normal HIDA scan. 2. Normal gallbladder ejection fraction.
== END 2022-06-16 09:29 | disposition home or self-care (01) ==
PROVIDERS: Visit Provider Surgery
DX: R10.9 Unspecified abdominal pain (principal)
CPT/HCPCS: 78227; A9537

== ENCOUNTER 2022-07-26 13:19 | Outpatient (CLI) | payer OTHER, SELFPAY ==
--- NOTE | 2022-07-26 13:24 | CT_ITS ---
WS: [id number] CT ABDOMEN AND PELVIS NONCONTRAST HISTORY: R10.9 - Unspecified abdominal pain TECHNIQUE: Imaging performed through the abdomen and pelvis. Coronal and sagittal reformats are submi tted. All CT scans at [facility] use at least one of these dose optimization techniques: auto mated exposure control; mA and/or kV adjustment per patient size (includes targeted exams where dose is matched to clinical indication); or iterative reconstruction. DLP: 824.03 mGy.cm COMPARISON: 01/11/2022 and 02/24/2021 Lower thorax: Lung bases are clear. Visualized heart is normal. No hiatal hernia. Liver: Normal size liver. No mass or bile duct dilatation. Gallbladder: Normal gallbladder. Pancreas: Normal size and attenuation. Normal pancreatic duct. No pancreatitis or mass. Spleen: Normal. Granulomata. Adrenal glands: Normal. No mass. Right kidney: Normal size kidney with no mass or hydronephrosis. Left kidney: Normal size kidney with no mass or hydronephrosis. Aorta: Normal abdominal aorta, no aneurysm or atherosclerosis. No free fluid, intraperitoneal air or significant lymphadenopathy. GI tract: The appendix is not definitely identified. There are curvilinear calcifications in the RIGH T lower quadrant which could be appendicoliths. These have been present on prior studies. No history of prior appendectomy. No GI tract obstruction. Abdominal wall: Negative. No hernia. Pelvis: Anteverted uterus. Nondistended bladder. No free fluid or adenopathy. No ovarian cysts identi fied. Osseous structures: Unremarkable. CT/CT abdomen pelvis wo con [id number] IMPRESSION: 1. No renal stone or obstruction on this unenhanced examination. 2. No free fluid. 3. The appendix is not definitely identified. Curvilinear calcifications in th e RIGHT lower quadrant may be appendicoliths. There is no evidence for acute ap pendicitis.
== END 2022-07-26 13:20 | disposition home or self-care (01) ==
PROVIDERS: PCP Family Medicine; Visit Provider Nurse Practitioner Women's Health
DX: R10.9 Unspecified abdominal pain (principal)
CPT/HCPCS: 74176; 80053; 81003; 85025; 86140

== ENCOUNTER → 2022-09-06 08:14 | Outpatient (BNVA) | payer SELFPAY | PROVIDERS: PCP Family Medicine; Visit Provider Nurse Practitioner Family | DX: R31.29 Other microscopic hematuria (principal) | CPT/HCPCS: 81003 ==

== ENCOUNTER 2023-02-21 11:05 | Outpatient (CLI) | payer OTHER, SELFPAY | END 2023-02-21 11:06 | disposition home or self-care (01) | LOC: LAB 11:08 | PROVIDERS: PCP Family Medicine; Visit Provider Nurse Practitioner Women's Health | DX: N92.6 Irregular menstruation, unspecified (principal) | CPT/HCPCS: 36415; 84702 ==

== ENCOUNTER → 2023-03-10 13:45 | Outpatient (BNVA) | payer OTHER, MEDICAID, SELFPAY | PROVIDERS: PCP Family Medicine; Visit Provider Nurse Practitioner Women's Health | DX: Z34.91 Encounter for supervision of normal pregnancy, unspecified, first trimester (principal); Z3A.01 Less than 8 weeks gestation of pregnancy | CPT/HCPCS: 76801 ==

== ENCOUNTER → 2023-03-11 14:29 | Outpatient (BNVA) | payer OTHER, SELFPAY | PROVIDERS: PCP Family Medicine; Visit Provider Nurse Practitioner Women's Health | DX: Z34.90 Encounter for supervision of normal pregnancy, unspecified, unspecified trimester (principal) | CPT/HCPCS: 81000 ==

== ENCOUNTER → 2023-12-21 13:37 | Outpatient (BNVA) | payer OTHER, MEDICAID, SELFPAY | PROVIDERS: PCP Family Medicine; Visit Provider Nurse Practitioner Women's Health | DX: Z34.00 Encounter for supervision of normal first pregnancy, unspecified trimester (principal) | CPT/HCPCS: 81025; 84315 ==

== ENCOUNTER → 2024-07-04 14:30 | Outpatient (BNVA) | payer OTHER, BC, MEDICAID, SELFPAY | PROVIDERS: PCP Family Medicine; Visit Provider Nurse Practitioner Women's Health | DX: F41.9 Anxiety disorder, unspecified (principal) | CPT/HCPCS: 84439; 84443; 84481 ==

== ENCOUNTER → 2024-08-15 14:00 | Outpatient (BNVA) | payer OTHER, BC, MEDICAID, SELFPAY | PROVIDERS: PCP Family Medicine; Visit Provider Family Medicine | DX: E55.9 Vitamin D deficiency, unspecified (principal); R31.29 Other microscopic hematuria; F41.9 Anxiety disorder, unspecified; F32.A Depression, unspecified; L30.9 Dermatitis, unspecified; R79.89 Other specified abnormal findings of blood chemistry | CPT/HCPCS: 80053; 80061; 82306; 82607; 82746; 83540; 84443; 85025 ==

== ENCOUNTER → 2024-10-23 10:37 | Outpatient (BNVA) | payer OTHER, BC, MEDICAID, SELFPAY | PROVIDERS: PCP Family Medicine; Visit Provider Nurse Practitioner Women's Health | DX: Z12.4 Encounter for screening for malignant neoplasm of cervix (principal); N91.2 Amenorrhea, unspecified | CPT/HCPCS: 81025; 88175 ==

== ENCOUNTER 2024-11-16 12:45 | Emergency (ER) | payer OTHER, BC, MEDICAID, SELFPAY ==
[2024-11-16 12:53] VITALS: BP 103/68; PULSE 88; RESP 16; TEMP 36.7; O2SAT 99; BMI 19.8
--- NOTE | 2024-11-16 13:08 | ED_ITS ---
HPI - Nausea/Vomiting/Diarrhea 2 General: Chief complaint: Nausea/Vomiting/Diarrhea Stated complaint: abdominal pain Time Seen by Provider: 11/16/24 12:49 Source: patient Mode of arrival: ambulatory Limitations: no limitations History of Present Illness: 29-year-old female who states that she w nicole up this morning she is having nausea vomiting she also has had a cough sore throat and subjective fevers. Patient's son currently is admitted here with RSV rhinovirus. She states she believes she may have caught something from him. She has had some abdominal cramping pain that is diffuse in nature. Denies any diarrhea Associated nausea: Yes Associated symtoms: Reports nausea; Denies chest pain, dysuria or headache(s) Related Data Home Medications Medication Instructions Recorded Confirmed cholecalciferol (vitamin D3) 50 50 mcg PO DAILY 10/23/24 11/16/24 mcg (2,000 unit) capsule Previous Rx's Medication Instructions Recorded citalopram 10 mg tablet 10 mg PO DAILY #90 tabs 08/30/24 norethindrone 1.5 mg-ethinyl 1 tab PO DAILY #84 tabs 10/24/24 estradiol 30 mcg(21)/iron 75 mg(7) tablet (Junel FE 1.5/30 (28)) naproxen 500 mg tablet (Naprosyn) 500 mg PO BID PRN pain #20 tabs 11/16/24 ondansetron 4 mg disintegrating 4 mg PO Q6H PRN nausea and 11/16/24 tablet vomiting #14 tabs Allergies Allergy/AdvReac Type Severity Reaction Status Date / Time tramadol Allergy ADR-Itching Verified 10/23/24 09:02 Review of Systems 2 Const: Reports: chills; Denies: fever(s), body aches or change in appetite ENMT: Reports: throat pain; Denies: dental pain Card: Denies: chest pain Resp: Reports: non-productive cough; Denies: dyspnea GI: Reports: abdominal pain, nausea and vomiting; Denies: diarrhea : Denies: dysuria Musc: Denies: neck pain or back pain Skin/Breast: Denies: rash Neuro: Denies: headache(s) PFSH ED 2 PFSH: Medical History Anxiety and depression No pertinent past medical history neghx: htn,dm,thyroid,dvt/pe PCP: None H/O herpes genitalis (~2018) one outbreak History of fracture of nasal bone Surgical History History of nasal septoplasty S/P laparoscopic appendectomy (02/24/21) Complete tear of wrist ligament (~2014) Right Family History Grandfather No problems noted. Grandmother Stroke Maternal Diabetes Maternal Hypercholesteremia Maternal Sister No problems noted. Brother Hypertension x2 Father Hypertension Mother Hypercholesteremia Thyroid disease Denies family history of Colon cancer Ovarian cancer Heart disease Breast cancer Uterine cancer Social History Smoking and tobacco/nicotine status: never used tobacco/nicotine Female Reproductive History: Spontaneous abortions: No Physical Exam 2 Const: COMMON NORMALS: no acute distress, patient oriented x3 and healthy appearing HENMT: COMMON NORMALS: normocephalic and atraumatic HEAD & SCALP: n ormocephalic and atraumatic Eye: COMMON NORMALS: Equal, round and reactive pupils present and EOMs intact bilaterally PUPIL: Yes Equal, round and reactive pupils present Neck/C-Spine: COMMON NORMALS: full ROM and supple Chest: COMMONS NORMALS: normal inspection of the chest and normal palpation of entire chest wall Resp: COMMON NORMALS: normal respiratory effort, No retractions, No use of accessory muscles and clear to auscultation bilaterally AUSCULTATION: clear to auscultation bilaterally Cardio: COMMON NORMALS: regular rate, regular rhythm and No murmurs present (Cardio) RATE: regular rate RHYTHM: regular rhythm GI: COMMON NORMALS: Normal to inspection, nondistended, normoactive bowel sounds present, Soft to palpation and no masses PALPATION: Yes Soft to palpation OTHER: diffuse tenderness Extremity: COMMON NORMALS: normal to inspection and full ROM Neuro: COMMON NORMALS: patient oriented x3, moves all extremities and no focal motor deficits Psych: COMMON NORMALS: mental status grossly normal, Normal thought process present and cooperative THOUGHT PROCESS: Normal thought process present Skin: COMMON NORMALS: no rashes or lesions noted and no wounds GENERAL SKIN EXAM: no rashes or lesions noted Course 2 Vital Signs: Vital signs: Vital Signs Temperature 98.1 F 11/16/24 12:53 Pulse Rate 64 11/16/24 15:13 Respiratory Rate 16 11/16/24 15:13 Blood Pressure 106/64 11/16/24 15:13 Pulse Oximetry 100 11/16/24 15:13 Oxygen Delivery Me thod Room Air 11/16/24 12:53 MDM - Nausea/Vomiting/Diarrhea Medical Decision Making Patient presents here with nausea vomiting cough she also been having some abdominal pain symptoms are likely from a viral syndrome she had close contacts with her child who was tested positive for multiple viruses. She does have abdominal pain CT shows possible ruptured ovarian cyst states she has had a history of ovarian cyst in the past pains improved she stable for discharge she is follow-up with PCP return if worsening. Medical Records I reviewed the patient's medical records. Lab Data I reviewed the patient's lab results. 11/16/24 13:12 11/16/24 13:12 Radiology Impressions Abdomen/Pelvis CT 11/16/24 14:34 IMPRESSION: 1. Small volume simple right adnexal free fluid. This finding may be physiologic. No adnexal mass or cyst is visible. Cyst rupture or PID could produce similar findings. 2. Appendix is absent. Laboratory Results WBC 11.99 10^3/uL (3.29-11.43) H 11/16/24 13:12 RBC 4.32 10^6/uL (3.85-5.65) 11/16/24 13:12 Hgb 13.10 g/dL (11.27-16.99) 11/16/24 13:12 Hct 39.8 % (36-47) 11/16/24 13:12 MCV 92.1 fl (85-98) 11/16/24 13:12 MCH 30.3 pg (27-33) 11/16/24 13:12 MCHC 32.9 g/dL (30-55) 11/16/24 13:12 RDW 12.5 % (12.1-15.1) 11/16/24 13:12 Plt Count 252 10^3/cmm (157-399) 11/16/24 13:12 MPV 10.8 fL (7.4-10.4) H 11/16/24 13:12 Neut % (Auto) 77.0 % 11/16/24 13:12 Lymph % (Auto) 14.3 % 11/16/24 13:12 Hunt % (Auto) 6.3 % 11/16/24 13:12 Eos % (Auto) 1.7 % 11/16/24 13:12 Baso % (Auto) 0.3 % 11/16/24 13:12 Neut # (Auto) 9.23 10^3/uL (1.8-7.7) H 11/16/24 13:12 Lymph # (Auto) 1.7 10^3/uL (0.8-4.8) 11/16/24 13:12 Hunt # (Auto) 0.8 10^3/uL (0.2-0.9) 11/16/24 13:12 Eos # (Auto) 0.2 10^3/uL (0.0-0.8) 11/16/24 13:12 Baso # (Auto) 0.0 10^3/uL (0.0-0.1) 11/16/24 13:12 Nucleated RBC % (auto) 0 % 11/16/24 13:12 Nucleated RBCs # 0.0 /100WBC 11/16/24 13:12 Sodium 136 mmol/L (136-145) 11/16/24 13:12 Potassium 4.1 mmol/L (3.5-5.1) 11/16/24 13:12 Chloride 101 mmol/L (98-107) 11/16/24 13:12 Carbon Dioxide 23 mmol/L (22-29) 11/16/24 13:12 Anion Gap 16.1 (5-19) 11/16/24 13:12 BUN 13 mg/dL (6-20) 11/16/24 13:12 Creatinine 0.6 mg/dL (0.5-0.9) 11/16/24 13:12 GFR Calculation 119.0 mL/min (90-130) 11/16/24 13:12 Glucose 79 mg/dL (65-115) 11/16/24 13:12 Calculated Osmolality 281 mOsm/kg (285-295) L 11/16/24 13:12 Calcium 9.1 mg/dL (8.5-10.5) 11/16/24 13:12 Total Bilirubin 0.3 mg/dL (0.15-1.2) 11/16/24 13:12 AST 12 U/L (0-32) 11/16/24 13:12 ALT 10 U/L (0-33) 11/16/24 13:12 Alkaline Phosphatase 71 U/L (35-105) 11/16/24 13:12 Total Protein 7.4 g/dL (6.6-8.7) 11/16/24 13:12 Albumin 4.2 g/dL (3.5-5.2) 11/16/24 13:12 Globulin 3.2 g/dL (1.3-4.6) 11/16/24 13:12 Lipase 40 U/L (13-60) 11/16/24 13:12 HCG, Qual Negative (Negative) 11/16/24 13:12 Urine Color Yellow (Yellow) 11/16/24 13:24 Urine Appearance Cloudy (CLEAR) A 11/16/24 13:24 Urine pH 5.5 (5-7) 11/16/24 13:24 Ur Specific [place] 1.025 (1.005-1.030) 11/16/24 13:24 Urine Protein Negative (Negative) 11/16/24 13:24 Urine Glucose (UA) Negative (Normal) 11/16/24 13:24 Urine Ketones Negative (Negative) 11/16/24 13:24 Urine Blood Negative (Negative) 11/16/24 13:24 Urine Nitrate Negative (Negative) 11/16/24 13:24 Urine Bilirubin Negative (Negative) 11/16/24 13:24 Urine Urobilinogen 1.0 mg/dL (Negative) 11/16/24 13:24 Ur Leukocyte Esterase Trace (Negative) A 11/16/24 13:24 Urine RBC 0-2 /hpf (0-2) 11/16/24 13:24 Urine WBC 11-20 /hpf (0-5) H 11/16/24 13:24 Ur Squamous Epith Cells 0-5 /hpf (0-5) 11/16/24 13:24 Amorphous Sediment Not Reportable 11/16/24 13:24 Urine Bacteria 2+ /hpf (NONE) H 11/16/24 13:24 Hyaline Casts 1.21 /lpf 11/16/24 13:24 Group A Strep Rapid Negative (Negative) 11/16/24 13:11 All radiology interpretation(s) finalized by discharge Discharge Plan Discharge Patient Disposition: Home Clinical Impression: Abdominal pain, Viral syndrome Condition: Stable Prescriptions: New ondansetron 4 mg tablet,disintegrating 4 mg PO Q6H PRN (Reason: nausea and vomiting) Qty: 14 0RF naproxen [Naprosyn] 500 mg tablet 500 mg PO BID PRN (Reason: pain) Qty: 20 0RF No Action cholecalciferol (vitamin D3) 50 mcg (2,000 unit) capsule 50 mcg PO DAILY citalopram 10 mg tablet 10 mg PO DAILY Qty: 90 1RF norethindrone-e.estradiol-iron [.04/05 (28)] 1.5 mg-30 mcg (21)/75 mg (7) tablet 1 tab PO DAILY Qty: 84 0RF Discharge Orders: Discharge ED (Routine); Ordered 11/16/24 Ordered By: Gardenia Malin Referrals: Sage Tolentino DO [Primary Care Provider] - 4-7 days Discharge Diet: Advance as tolerated Discharge Activity: Resume usual activity Patient Instructions: Viral Syndrome (ED), Abdominal Pain (ED) Coding Level of Care Code ED 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
[2024-11-16 13:12] VITALS: BP 121/70; PULSE 76; RESP 16; O2SAT 99
[2024-11-16] MEDS: ondansetron 2 mg/ML SDV 2 mL 4 MG IVP (13:15)
[2024-11-16 13:26] LABS: Rapid Strep A Test Negative (Negative)
[2024-11-16 13:30] LABS: Bilirubin Urine Negative (Negative); Blood Urine Negative (Negative); Glucose Urine UA Negative (Normal); Ketones Urine Negative (Negative); Leukocyte Esterase Urine Trace (Negative); Nitrate Urine Negative (Negative); Protein Urine Negative (Negative); Specific Gravity, Urine 1.025 (1.005-1.030); Urine Appearance Cloudy (CLEAR); Urine Color Yellow (Yellow); pH Urine 5.5 (5-7)
[2024-11-16 13:35] LABS: Add Urine Microscopic? YES; Bacteria Urine 2+ /hpf; Hyaline Casts Urine 1.21 /lpf; RBC Urine 0-2 /hpf (0-2); Squamous Epithelial Cell Urine 0-5 /hpf (0-5)
[2024-11-16 13:40] LABS: Basophils % 0.3 %; Eosinophils # 0.2 10^3/uL (0.0-0.8); Eosinophils % 1.7 %; Hematocrit 39.8 % (36-47); Lymphocytes # 1.7 10^3/uL (0.8-4.8); Lymphocytes % 14.3 %; Mean Corpuscular HGB Conc 32.9 g/dL (30-55); Mean Corpuscular Hemoglobin 30.3 pg (27-33); Mean Corpuscular Volume 92.1 fl (85-98); Mean Platelet Volume 10.8 fL (7.4-10.4); Monocytes # 0.8 10^3/uL (0.2-0.9); Monocytes % 6.3 %; Neutrophils # 9.23 10^3/uL (1.8-7.7); Nucleated Red Blood Cells % 0 %; Platelet Count 252 10^3/cmm (157-399); Red Blood Count 4.32 10^6/uL (3.85-5.65); Red Cell Distribution Width 12.5 % (12.1-15.1); White Blood Count 11.99 10^3/uL (3.29-11.43)
[2024-11-16 13:41] LABS: HCG, Serum Qual Negative (Negative)
[2024-11-16 14:02] VITALS: BP 128/55; PULSE 76; RESP 16; O2SAT 99
[2024-11-16 14:02] LABS: Alanine Aminotransferase 10 U/L (0-33); Albumin Level 4.2 g/dL (3.5-5.2); Alkaline Phosphatase 71 U/L (35-105); Anion Gap 16.1 (5-19); Aspartate Amino Transferase 12 U/L (0-32); Blood Urea Nitrogen 13 mg/dL (6-20); Calcium 9.1 mg/dL (8.5-10.5); Carbon Dioxide 23 mmol/L (22-29); Chloride 101 mmol/L (98-107); Creatinine Clr Calc Pharmacy 122.9464; Globulin 3.2 g/dL (1.3-4.6); Glucose 79 mg/dL (65-115); Lipase 40 U/L (13-60); Osmolality Calculated 281 mOsm/kg (285-295); Potassium 4.1 mmol/L (3.5-5.1); Sodium 136 mmol/L (136-145); Total Bilirubin 0.3 mg/dL (0.15-1.2); Total Protein 7.4 g/dL (6.6-8.7)
[2024-11-16 14:17] LABS: UA Slide Review UA Slide Review Perf
[2024-11-16 14:18] LABS: Add Urine Culture? Yes
--- NOTE | 2024-11-16 14:34 | CTR_ITS ---
PROCEDURE INFORMATION: Exam: CT Abdomen And Pelvis With Contrast Exam date and time: 11/16/2024 2:59 PM Age: 29 years old Clinical indication: Abdominal pain; Localized; Lower; Additional info: Abd pain TECHNIQUE: Imaging protocol: Computed tomography of the abdomen and pelvis with contrast. Radiation optimization: All CT scans at this facility use at least one of these dose optimization techniques: automated exposure control; mA and/or kV adjustment per patient size (includes targeted exams where dose is matched to clinical indication); or iterative reconstruction. Contrast material: OMNI 350; Contrast volume: 75 ml; Contrast route: INTRAVENOUS (IV); COMPARISON: CT abdomen pelvis wo con [id number] 07/26/2022 1:29 PM RADIATION DOSE METRICS: Total DLP (mGy-cm): 353.47 FINDINGS: Lungs: Lung bases are clear. Liver: The liver is normal. Gallbladder and biliary ducts: The gallbladder is normal. There is no biliary dilation. Pancreas: The pancreas is unremarkable. Spleen: The spleen is unremarkable. Adrenal glands: The adrenal glands are unremarkable. Kidneys and ureters: The kidneys are unremarkable. No hydronephrosis or stones. No ureteral dilation. Stomach and bowel: The stomach is unremarkable. The small bowel is nondilated. The colon is unremarkable. Appendix: The appendix is absent. Intraperitoneal space: There is a small volume of simple intraperitoneal free fluid in right adnexa. No intraperitoneal free air. Vasculature: The aorta is unremarkable. There is no aneurysm. The portal, splenic and superior mesenteric veins are patent. Lymph nodes: There is no lymphadenopathy in the retroperitoneum, mesentery, pelvis or inguinal regions. Urinary bladder: The urinary bladder is nondistended, limiting assessment of wall thickness. Reproductive: The uterus is unremarkable. There is no adnexal mass or large cyst. Bones/joints: Bones are unremarkable. Soft tissues: The abdominal wall is intact. CT/CT abdomen pelvis w con* [id number] IMPRESSION: 1. Small volume simple right adnexal free fluid. This finding may be physiologic. No adnexal mass or cyst is visible. Cyst rupture or PID could produce similar findings. 2. Appendix is absent.
[2024-11-16] MEDS: diphenhydrAMINE 50 mg/mL SDV 1mL IVP (14:38)
[2024-11-16] MEDS: metoclopramide 5 mg/mL SDV 2 mL 10 MG IVP (14:38)
[2024-11-16 14:41] VITALS: BP 106/64; PULSE 68; RESP 16; O2SAT 98
[2024-11-16] MEDS: iohexol 350 mg/mL 500 mL Btl (per mL) IV (15:01)
[2024-11-16 15:13] VITALS: BP 106/64; PULSE 64; RESP 16; O2SAT 100
[2024-11-16 15:46] VITALS: BP 107/67; PULSE 83; RESP 16; O2SAT 100
[2024-11-16 17:11] LABS: Adenovirus Not Detected (NOT DETECT); Chlamydia Pneumoniae Not Detected (NOT DETECT); Coronavirus 229E,HKU1,NL63,OC4 Not Detected (NOT DETECT); Human Metapneumovirus Not Detected (NOT DETECT); Human Rhinovirus/Enterovirus Not Detected (NOT DETECT); Influenza A Not Detected (NOT DETECT); Influenza A H1 Not Detected (NOT DETECT); Influenza A H1-2009 Not Detected (NOT DETECT); Influenza A H3 Not Detected (NOT DETECT); Influenza B Not Detected (NOT DETECT); Mycoplasma Pneumoniae Not Detected (NOT DETECT); Parainfluenza Virus Type 1 Not Detected (NOT DETECT); Parainfluenza Virus Type 2 Not Detected (NOT DETECT); Parainfluenza Virus Type 3 Not Detected (NOT DETECT); Parainfluenza Virus Type 4 Not Detected (NOT DETECT); Respiratory Syncytial Virus B Not Detected (NOT DETECT); SARS-COV-2 Not Detected (NOT DETECT)
[2024-11-16 17:13] LABS: Respiratory Syncytial Virus A Detected (NOT DETECT)
--- NOTE | 2024-11-16 17:19 | PC.NURSE ---
lab called with critical test result, pt is positive for RSV. pt called and notified by this RN at [id number].
== END 2024-11-16 15:48 | disposition home or self-care (01) ==
PROVIDERS: Emergency Provider Emergency Medicine; PCP Family Medicine
DX: R10.9 Unspecified abdominal pain (principal); B34.9 Viral infection, unspecified
CPT/HCPCS: 36415; 74177; 80053; 81001; 83690; 84703; 85025; 87081; 87086; 87486; 87581; 87633; 87880; 96374; 96375; 99285; J1200; J2405; J2765

== ENCOUNTER → 2024-11-27 15:41 | Outpatient (BNVA) | payer OTHER, BC, MEDICAID, SELFPAY | PROVIDERS: PCP Family Medicine; Visit Provider Nurse Practitioner Women's Health | DX: R10.2 Pelvic and perineal pain (principal); N83.202 Unspecified ovarian cyst, left side | CPT/HCPCS: 76830 ==

== ENCOUNTER → 2025-05-15 07:30 | Outpatient (BNVA) | payer BC, SELFPAY | PROVIDERS: PCP Family Medicine; Visit Provider Family Medicine | DX: R00.2 Palpitations (principal); R55 Syncope and collapse; E83.42 Hypomagnesemia | CPT/HCPCS: 80053; 82533; 83735; 84443; 85027 ==

== ENCOUNTER 2025-07-29 13:26 | Emergency (ER) | payer BC, SELFPAY ==
[2025-07-29 13:30] VITALS: BP 110/69; PULSE 109; RESP 16; TEMP 36.8; O2SAT 100
--- OUTSIDE RECORDS SUMMARY | 2025-07-29 13:31 | XMS_ITS | Patient Health Record ---
Author Organization [facility], [facility] Address [address] [place] [address] Care Team Providers Care Director Of Sales Support Name Role Phone Kerri Banks Primary Care Provider Unavailab le Allergies Allergen (clinical drug ingredient) Drug/Non Drug Allergy documented on EMR Reaction Allergy Type Onset Date Status tramadol Tramadol itching Drug Allergy Active Reason For Referral No Information Medications Medication SIG (Take, Route, Frequency, Duration) Notes Start Date End Date Status Tums *Pick strength-form from Medispan for eRX* Active Tylenol *Pick strength-form from Medispan for eRX* Active Levonorgestrel-Ethin yl Estrad *Pick strength-form from Medispan for eRX* Active Problems Problem Type SNOMED Code ICD Code Onset Dates Problem Status W/U Status Risk Notes Problem Gross hematuria (666625107) Gross hematuria (R31.0) Active confirmed Problem Right flank pain (228691160) Right flank pain (R10.9) Active confirmed Problem Microscopic hematuria (445896543) Microscopic hematuria (R31.29) Active confirmed Plan Of Treatment No Information Insurance Providers Payer Name Payer Address Payer Phone Subscriber Number Group Number Insured Name Patient Relationship to Insured Coverage Start Date Coverage End Date [facility] [address] [place] SUAREZ [id number] Vicki Soler Self - patient is the insured Medical (General) History Medical History History ICD Code Chicken Pox Back Trouble bronchitis herpes one outbreak 2019 Surgical History Surgery Date(Month/Year) nasal septoplasty 2013 wrist ligament tear 2015 appendectomy 02/23/21 Hospitalization History Reason Date(Month/Year) appendectomy
--- OUTSIDE RECORDS SUMMARY | 2025-07-29 13:31 | XMS_ITS | Patient Health Record ---
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 Name Role Phone Kerri Banks Primary Care Provider Unavailab Brendon Espinoza Unavailable Allergies Allergen (clinical drug ingredient) Drug/Non Drug Allergy documented on EMR Reaction Allergy Type Onset Date Status tramadol Tramadol itching Drug Allergy Active Reason For Referral No Information Medications Medication SIG (Take, Route, Frequency, Duration) Notes Start Date End Date Status Tums Active Levonorgestrel-Ethinyl Estrad Active Tylenol Active Social History Tobacco Use: Social History Observation Description Date Details (start date - stop date) Never Smoker NA - NA Social History Drugs/Alcohol: Social Info Question Answer Notes Alcohol Screen (Audit-C) Did you have a drink containing alcohol in the past year? No Points 0 Interpretation Negative Drugs Have you used drugs other than those for medical reasons in the past 12 months? No Caffeine Intake: 1-2 cups per day Tobacco Use: Social Info Question Answer Notes xTobacco Use/Smoking Are you a nonsmoker Additional Details Category Social Info Options Details Drugs/Alcohol: Do you smoke marijuana? De nies Do you drink alcohol? No Problems Problem Type SNOMED Code ICD Code Onset Dates Problem Status W/U Status Risk Notes Problem Gross hematuria (251828356) Gross hematuria (R31.0) Active confirmed Problem Microscopic hematuria (336948181) Microscopic hematuria (R31.29) Active confirmed Problem Right flank pain (959627122) Right flank pain (R10.9) Active confirmed Plan Of Treatment No Information Insurance Providers Payer Name Payer Address Payer Phone Subscriber Number Group Number Insured Name Patient Relationship to Insured Coverage Start Date Coverage End Date [facility] [address] [place] [phone] [id number] Vicki Soler Self - patient is the insured Medical (General) History Medical History History ICD Code Chicken Pox Back Trouble bronchitis herpes one outbreak 2018 Surgical History Surgery Date(Month/Year) nasal septoplasty 2012 wrist ligament tear 2015 appendectomy 02/23/21 Hospitalization History Reason Date(Month/Year) appendectomy
[2025-07-29 14:02] VITALS: BP 124/84; O2SAT 98
--- NOTE | 2025-07-29 14:16 | W.ED.ABDPA2 ---
HPI - Abdominal Pain General: Chief Complaint: Abdominal Pain Stated Complaint: abd pain, n/v/d, burning feeling Time Seen by Provider: 07/29/25 13:29 History of Present Illness: 30-year-old female who presents emergency room with epigastric and right upper quadrant tenderness to palpation. This is been going on since 3 AM this morning. She has had some nausea and vomiting. Some diarrhea. No history of any abdominal surgeries. She says she might be a little late on her menstruation but she had a negative test at clinic today. Related Data Previous Rx's ?Medication ?Instructions ?Recorded norethindrone 1.5 mg-ethinyl See Rx Instructions .Route 01/11/25 estradiol 30 mcg(21)/iron 75 mg(7) .COMPLEX #84 tabs tablet ([place]ato Fe 1.5/30 (28)) bupropion HCl 150 mg 24 hr tablet, 150 mg PO QAM #30 tabs 04/17/25 extended release (Wellbutrin XL) citalopram 10 mg tablet 10 mg PO DAILY #30 tabs 04/17/25 diclofenac sodium 50 mg 50 mg PO BID PRN pain #14 tabs 07/29/25 tablet,delayed release ondansetron 8 mg disintegrating 8 mg PO Q6H #14 tabs 07/29/25 tablet Allergies Allergy/AdvReac Type Severity Reaction Status Date / Time tramadol Allergy ADR-Itching Verified 06/12/25 07:33 Review of Systems Narrative: Constitutional symptoms: Negative except as documented in HPI. Skin symptoms: Negative except as documented in HPI. Eye symptoms: Negative except as documented in HPI. ENMT symptoms: Negative except as documented in HPI. Respiratory symptoms: Negative except as documented in HPI. Cardiovascular symptoms: Negative except as documented in HPI. Gastrointestinal symptoms: Negative except as documented in HPI. Genitourinary symptoms: Negative except as documented in HPI. Musculoskeletal symptoms: Negative except as documented in HPI. Neurologic symptoms: Negative except as documented in HPI. Psychiatric symptoms: Negative except as documented in HPI. Endocrine symptoms: Negative except as documented in HPI. [facility] ED PFSH: Medical History (Updated 07/29/25 @ 15:21 by Kellen Vergara MD) Anxiety and depression No pertinent past medical history neghx: htn,dm,thyroid,dvt/pe PCP: None H/O herpes genitalis (~2019) one outbreak History of fracture of nasal bone Surgical History History of nasal septoplasty S/P laparoscopic appendectomy (02/24/21) Complete tear of wrist ligament (~2014) Right Family History Grandfather No problems noted. Grandmother Stroke Maternal Diabetes Maternal Hypercholesteremia Maternal Sister No problems noted. Brother Hypertension x2 Father Hypertension Mother Hypercholesteremia Thyroid disease Denies family history of Colon cancer Ovarian cancer Heart disease Breast cancer Uterine cancer Social History Smoking and tobacco/nicotine status: never used tobacco/nicotine Female Reproductive History: Spontaneous abortions: No Physical Exam Narrative: EXAM NARRATIVE: General: Alert, no acute distress. Skin: Warm, dry. Head: Normocephalic, atraumatic. Neck: Supple, trachea midline. Eye: Extraocular movements are intact. Ears, nose, mouth and throat: mucosa moist. Cardiovascular: Regular, Normal peripheral perfusion. Respiratory: Lungs are clear to auscultation, respirations are non-labored, breath sounds are equal, Symmetrical chest wall expansion. Gastrointestinal: Soft, moderate epigastric and right upper quadrant tenderness to palpation, Non distended Musculoskeletal: Normal ROM, no deformity. Neurological: Alert and oriented, No focal neurological deficit observed. Psychiatric: Cooperative, appropriate mood & affect. Course Vital Signs: Vital signs: Vital Signs Temperature 98.3 F 07/29/25 13:30 Pulse Rate 109 H 07/29/25 13:30 Respiratory Rate 16 07/29/25 13:30 Blood Pressure 125/88 07/29/25 14:30 Pulse Oximetry 99 07/29/25 14:30 Oxygen Delivery Me thod Room Air 07/29/25 13:30 MDM - Abdominal Pain Medical Decision Making Differential diagnosis for patient presenting with right upper quadrant abdominal pain including but not limited to and based on the above HPI, review of systems and physical exam: Cholelithiasis or cholecystitis. Hepatitis. Diverticulitis. Constipation. Ureterolithiasis. Urinary tract infection. Appendicitis. colitis. small bowel obstruction. crohn's flare. pancreatitis. gastritis. peptic ulcer. Aortic disection. Workup including imaging and lab work replaced based on the above differential, history and exam to evaluate differential diagnosis Ultrasound of the right upper quadrant: No acute process. Normal gallbladder. This was reviewed and interpreted by myself the emergency room physician. I also reviewed the radiology report. Lab Review: Laboratory results were reviewed and interpreted by myself the emergency room physician. No leukocytosis. CRP not elevated. Urinalysis I do not think is very good clean-catch as there are few bacteria but no whites and quite a few squames. No renal failure. I reviewed the patient's medical record. Reexamination: Patient remained stable. No increased work of breathing. No altered mental status. No focal motor deficits. She says she feels a little better after Toradol and Zofran. Assessment and plan: Gastroenteritis ?IV Zofran and Toradol in the emergency room - Discharged home - Discussed plan with patient. Answered any questions. - Evaluation and treatment of this problem were appropriate in the emergency setting. Lab Data 07/29/25 14:02 07/29/25 14:02 Labs/Radiology: Radiology Impressions Gallbladder Ultrasound 07/29/25 14:18 IMPRESSION: Normal right upper quadrant ultrasound. Laboratory Results WBC 9.90 10^3/uL (3.29-11.43) 07/29/25 14:02 RBC 5.09 10^6/uL (3.85-5.65) 07/29/25 14:02 Hgb 15.50 g/dL (11.27-16.99) 07/29/25 14:02 Hct 46.9 % (36-47) 07/29/25 14:02 MCV 92.1 fl (85-98) 07/29/25 14:02 MCH 30.5 pg (27-33) 07/29/25 14:02 MCHC 33.0 g/dL (30-55) 07/29/25 14:02 RDW 12.6 % (12.1-15.1) 07/29/25 14:02 Plt Count 240 10^3/cmm (157-399) 07/29/25 14:02 MPV 10.9 fL (7.4-10.4) H 07/29/25 14:02 Neut % (Auto) 86.2 % 07/29/25 14:02 Lymph % (Auto) 8.8 % 07/29/25 14:02 [place] % (Auto) 3.7 % 07/29/25 14:02 Eos % (Auto) 0.9 % 07/29/25 14:02 Baso % (Auto) 0.1 % 07/29/25 14:02 Neut # (Auto) 8.53 10^3/uL (1.8-7.7) H 07/29/25 14:02 Lymph # (Auto) 0.9 10^3/uL (0.8-4.8) 07/29/25 14:02 [place] # (Auto) 0.4 10^3/uL (0.2-0.9) 07/29/25 14:02 Eos # (Auto) 0.1 10^3/uL (0.0-0.8) 07/29/25 14:02 Baso # (Auto) 0.0 10^3/uL (0.0-0.1) 07/29/25 14:02 Nucleated RBC % (auto) 0 % 07/29/25 14:02 Nucleated RBCs # 0.0 /100WBC 07/29/25 14:02 Sodium 139 mmol/L (136-145) 07/29/25 14:02 Potassium 4.1 mmol/L (3.5-5.1) 07/29/25 14:02 Chloride 104 mmol/L (98-107) 07/29/25 14:02 Carbon Dioxide 23 mmol/L (22-29) 07/29/25 14:02 Anion Gap 16.1 (5-19) 07/29/25 14:02 BUN 11 mg/dL (6-20) 07/29/25 14:02 Creatinine 0.7 mg/dL (0.5-0.9) 07/29/25 14:02 GFR Calculation 98.9 mL/min (90-130) 07/29/25 14:02 Glucose 97 mg/dL (65-115) 07/29/25 14:02 Calculated Osmolality 287 mOsm/kg (285-295) 07/29/25 14:02 Calcium 9.1 mg/dL (8.5-10.5) 07/29/25 14:02 Total Bilirubin 0.9 mg/dL (0.15-1.2) 07/29/25 14:02 AST 18 U/L (0-32) 07/29/25 14:02 ALT 17 U/L (0-33) 07/29/25 14:02 Alkaline Phosphatase 60 U/L (35-105) 07/29/25 14:02 C-Reactive Protein 4.5 mg/L (0.0-4.9) 07/29/25 14:02 Total Protein 8.2 g/dL (6.6-8.7) 07/29/25 14:02 Albumin 4.7 g/dL (3.5-5.2) 07/29/25 14:02 Globulin 3.5 g/dL (1.3-4.6) 07/29/25 14:02 Lipase 28 U/L (13-60) 07/29/25 14:02 HCG, Qual Negative (Negative) 07/29/25 14:02 Urine Color Yellow (Yellow) 07/29/25 14:47 Urine Appearance Cloudy (CLEAR) A 07/29/25 14:47 Urine pH TNP 07/29/25 14:47 Ur Specific [place] TNP 07/29/25 14:47 Urine Protein TNP 07/29/25 14:47 Urine Glucose (UA) TNP 07/29/25 14:47 Urine Ketones TNP 07/29/25 14:47 Urine Blood TNP 07/29/25 14:47 Urine Nitrate TNP 07/29/25 14:47 Urine Bilirubin TNP 07/29/25 14:47 Urine Urobilinogen TNP 07/29/25 14:47 Ur Leukocyte Esterase TNP 07/29/25 14:47 Urine RBC 0-4 /hpf (0-2) H 07/29/25 14:47 Urine WBC 0-4 /hpf (0-5) H 07/29/25 14:47 Ur Squamous Epith Cells 5-10 /hpf (0-5) H 07/29/25 14:47 Amorphous Sediment Not Reportable 07/29/25 14:47 Urine Bacteria 2+ /hpf (NONE) H 07/29/25 14:47 Hyaline Casts 0-4 /lpf H 07/29/25 14:47 Urine Mucus Trace /hpf 07/29/25 14:47 All radiology interpretation(s) finalized by discharge Discharge Plan Discharge Patient Disposition: Home Clinical Impression: Abdominal pain, Gastroenteritis Condition: Stable Prescriptions: New ondansetron 8 mg tablet,disintegrating 8 mg PO Q6H Qty: 14 0RF Rx Instructions: Take 1/2-1 tab every 6 hours as needed for nausea and vomiting diclofenac sodium 50 mg tablet,delayed release (DR/EC) 50 mg PO BID PRN (Reason: pain) Qty: 14 0RF No Action bupropion HCl [Wellbutrin XL] 150 mg tablet extended release 24 hr 150 mg PO QAM Qty: 30 5RF citalopram 10 mg tablet 10 mg PO DAILY Qty: 30 5RF norethindrone-e.estradiol-iron [Pato Fe 1.5/30 (28)] 1.5 mg-30 mcg (21)/75 mg (7) tablet See Rx Instructions .ROUTE .COMPLEX Qty: 84 3RF Dose Instruction: Take 1 tablet by mouth once daily Rx Instructions: Take 1 tablet by mouth once daily Discharge Orders: Discharge ED (Routine); Ordered 07/29/25 Ordered By: Kellen Vergara Referrals: Sage Tolentino, [Primary Care Provider, Family Practice] Discharge Diet: Advance as tolerated Discharge Activity: Increase activity as tolerated Patient Instructions: Abdominal Pain (ED), Opioid Safety, Pain Management, Patient Portal & Stefani Instructions Activity Restrictions/Additional Instructions: Thank you for choosing [facility] for your healthcare needs today. You have been screened and evaluated and felt safe for discharge. Health conditions do change or evolve sometimes and as such it is important that you follow up with your Primary Doctor to be re checked, 3-5 days is a general good time frame for follow up. You are always welcome to return to the ED for re assessment if your symptoms are worsening or you have new concerns Print Language: Chinese Coding Level of Care Code ED Pharmacognosy Teacher for Jarrett Gunn
--- NOTE | 2025-07-29 14:18 | US_ITS ---
WS: [id number] RIGHT UPPER QUADRANT ULTRASOUND HISTORY: Right upper quadrant pain, concern for cholecystitis COMPARISON: 01/07/2022 Liver: 17.2 cm in length. Normal size liver and echogenicity. No bile duct dilatation or mass. Portal Vein: Normal hepatopetal flow with monophasic waveform. Gallbladder: Normally distended gallbladder with no stones or wall thickening. CBD: 0.3 cm Pancreas: Normal size and echogenicity. Right kidney: 10.2 cm in length. Normal size and echogenicity. No hydronephrosis or mass. Aorta and IVC: Unremarkable abdominal aorta and IVC. No ascites. US/US gall bladder 55648 IMPRESSION: Normal right upper quadrant ultrasound.
[2025-07-29 14:24] LABS: Hematocrit 46.9 % (36-47); Hemoglobin 15.50 g/dL (11.27-16.99); Mean Corpuscular HGB Conc 33.0 g/dL (30-55); Mean Corpuscular Hemoglobin 30.5 pg (27-33); Mean Corpuscular Volume 92.1 fl (85-98); Nucleated Red Blood Cells % 0 %; Platelet Count 240 10^3/cmm (157-399); Red Blood Count 5.09 10^6/uL (3.85-5.65); White Blood Count 9.90 10^3/uL (3.29-11.43)
[2025-07-29 14:30] VITALS: BP 125/88; O2SAT 99
[2025-07-29 14:39] LABS: HCG, Serum Qual Negative (Negative)
[2025-07-29 14:41] LABS: Alanine Aminotransferase 17 U/L (0-33); Albumin Level 4.7 g/dL (3.5-5.2); Alkaline Phosphatase 60 U/L (35-105); Anion Gap 16.1 (5-19); Aspartate Amino Transferase 18 U/L (0-32); Blood Urea Nitrogen 11 mg/dL (6-20); Calcium 9.1 mg/dL (8.5-10.5); Carbon Dioxide 23 mmol/L (22-29); Chloride 104 mmol/L (98-107); Creatinine Clr Calc Pharmacy 108.8574; Globulin 3.5 g/dL (1.3-4.6); Glucose 97 mg/dL (65-115); Lipase 28 U/L (13-60); Osmolality Calculated 287 mOsm/kg (285-295); Potassium 4.1 mmol/L (3.5-5.1); Sodium 139 mmol/L (136-145); Total Protein 8.2 g/dL (6.6-8.7)
[2025-07-29 14:54] LABS: Add Urine Microscopic? YES; UA Manual Slide Review YES; UA Slide Review UA Slide Review Perf
[2025-07-29] MEDS: ondansetron 2 mg/ML SDV 2 mL 4 MG IVP (15:12)
[2025-07-29 15:51] VITALS: BP 117/64; PULSE 73; RESP 16; O2SAT 97
== END 2025-07-29 15:53 | disposition home or self-care (01) ==
PROVIDERS: Physician Assistant; Emergency Provider Emergency Medicine; PCP Family Medicine
DX: K52.9 Noninfective gastroenteritis and colitis, unspecified (principal); R10.13 Epigastric pain; R10.11 Right upper quadrant pain
CPT/HCPCS: 36415; 76705; 80053; 81001; 83690; 84703; 85025; 86140; 96374; 96375; 99285; J1885; J2405

== ENCOUNTER → 2025-09-04 15:50 | Outpatient (BNVA) | payer BC, SELFPAY | PROVIDERS: PCP Family Medicine; Visit Provider Family Medicine | DX: R30.0 Dysuria (principal) | CPT/HCPCS: 81000; 82785; 85651; 86001; 86003; 86008; 86140 ==

== ENCOUNTER 2025-09-30 12:20 | Emergency (ER) | payer BC, SELFPAY ==
[2025-09-30 12:24] VITALS: BP 115/74; PULSE 94; RESP 17; TEMP 36.4; O2SAT 100; BMI 21.2
--- OUTSIDE RECORDS SUMMARY | 2025-09-30 12:49 | XMS_ITS | Continuity of Care Document ---
Author Organization [place] - Leslie Boggs, [facility] ([facility]) Address [address] [place] [id number] Care Team Providers Care Acupressure Therapist Name Role Phone LIUDMILA PICKETT Primary Care Provider [phone] Assessment No assessment recorded. Plan of Treatment Reminders Order Date Submit Date Provider Last Modified By Organization Details Last Modified Time Details Appointments None recorded. Lab urinalysis , dipstick 2024 025 [facility] ([facility]), [address] [place] [address], [phone], 14:03:33 test, urine 2024 025 [facility]), [address] [place] [address], [phone], 14:02:37 Referral None recorded. Procedures None recorded. Surgeries None recorded. Imaging None recorded. Medication Orders None recorded. Patient TargetsNo targets recorded. Patient InstructionsNo instructions recorded. Reason for Referral None Reported. Results Created Date Observation Date Name Description Value Unit Range Abnormal Flag Note LastModifiedBy Organization Detail LastModifiedTime 07/29/20 25 07/29/2025 urina lysis , dipst ick Leukocytes Negati ve Not Available [facility]) [address] [place] [address], [phone], 07/29/2025 13:53:13 07/29/20 25 07/29/2025 urina lysis , dipst ick Nitrite negati ve Not Available [facility] ([facility]) [address] [place], [address], 07/29/2025 13:53:13 07/29/20 25 07/29/2025 urina lysis , dipst ick Urobilinogen .2 Not Available [facility] ([facility]) [address] [place], [address], 07/29/2025 13:53:13 07/29/20 25 07/29/2025 urina lysis , dipst ick Protein Negati ve Not Available [facility] ([facility]) [address] [place], [address], 07/29/2025 13:53:13 07/29/20 25 07/29/2025 urina lysis , dipst ick pH 5.5 Not Available [facility] ([facility]) [address] [place], [address], 07/29/2025 13:53:13 07/29/20 25 07/29/2025 urina lysis , dipst ick Blood Negati ve Not Available [facility] ([facility]) [address] [place], [address], 07/29/2025 13:53:13 07/29/20 25 07/29/2025 urina lysis , dipst ick Specific [place] 1.030 Not Available [facility] ( [facility]) [address] [place], [address], 07/29/2025 13:53:13 07/29/20 25 07/29/2025 urina lysis , dipst ick Ketone Negati ve Not Available [facility] ([facility]) [address] [place], [address], 07/29/2025 13:53:13 07/29/20 25 07/29/2025 urina lysis , dipst ick Bilirubin Negati ve Not Available [facility] ([facility]) [address] [place], [address], 07/29/2025 13:53:13 07/29/2007/29/2025 urina lysis , dipst ick Glucose Negati ve Not Available [facility] ([facility]) [address] [place], [address], 07/29/2025 13:53:13 07/29/2007/29/2025 urina lysis , dipst ick Appearance Clear Not Available [facility] [address] [place], [address], 07/29/2025 13:53:13 07/29/2007/29/2025 urina lysis , dipst ick Color Yellow Not Available [facility] [address] [place], [address], 07/29/2025 13:53:13 07/29/2007/29/2025 pregn azael test, urine HCG negati ve Not Available [facility] ([facility]) [address] [place], [address], 07/29/2025 13:53:27 Result Notes None recorded. Medical Equipment None Reported. Allergies Allergen ID Allergen Name Allergen Category Reaction Reaction Severity Criticality Documentation Date Start Date Code Code System Note Provider Name and Address Organization Details Recorded Time 17021 tramadol medicatio n itching Not available Not available 12/18/2024 99071 RxNorm ISAI Tony - [facility], L.LMadelineCMadeline 08:09:41 Medications Name Sig Start Date Stop Date Status Note LastModified by Organization Details LastModified Time benzonatate 200 mg capsule Take 1 capsule 3 times a day by oral route as needed. 07/29 completed Not Available Not Available Not Available citalopram 10 mg tablet TAKE 1 TABLET BY MOUTH ONCE DAILY active Not Available Not Available No t Available amoxicillin 600 mg-derick puckett clavulanate 42.9 mg/5 mL oral suspension TAKE 7 ML BY MOUTH EVERY 12 HOURS FOR 7 DAYS 12/18 completed Not Available Not Available Not Available triamcinolo ne acetonide 0.1 % topical cream APPLY ONE APPLICATI ON TOPICALLY DAILY 12/18 completed Not Available Not Available Not Available ondansetron 4 mg disintegrat ing tablet DISSOLVE 1 TABLET IN MOUTH EVERY 6 HOURS NEEDED FOR NAUSEA AND VOMITING 12/18 completed Not Available Not Available Not Available Wellbutrin SR active Not Available Not Available Not Available Tamiflu 6 mg/mL oral suspension Take 12.5 mL twice a day by oral route for 5 days. 07/29 completed Not Available Not Available Not Available Jencycla 0.35 mg tablet TAKE 1 TABLET BY MOUTH ONCE DAILY active Not Available Not Available No t Available Vitals Date Recorded Body height Body mass index (BMI) Body weight Oxygen saturation Heart rate Body temperature Systolic And Diastolic Provider Name and Address Organization Details Last Updated DateTime 165.1 cm 22 kg/m2 49385.5 9 g 98 % 96 /min 98 [degF] 116/70 mm[Hg] Beatriz Melissa [facility] 13:46:30 Social History Question Answer Notes LastModified by Organizat ion Details LastModified Time Tobacco Smoking Status Never Smoker Beatriz Melissa [facility] 07/29/2025 13:43:35 What Was The Date Of Your Most Recent Tobacco Screening? 07/29/2025 outs Information not available 07/29/2025 Sex: Unknown Functional Status None recorded. Mental Status None recorded. Family History Nothing Reported. Medical History No medical history recorded. Gynecological HistoryNo gynecological history recorded. Obstetrics History GPAL:G 0 P 0 0 0 0 Immunizations Vaccine Type Date Status Note Provider Nam e and Address Organization Details Recorded Time Hep B, unspecified formulation 6 completed Not Available [facility] 07/29/2025 13:40:05 Hep B, unspecified formulation 6 completed Not Available [facility] 07/29/2025 13:40:05 polio, unspecified formulation 6 completed Not Available [facility] 07/29/2025 13:40:05 DTP-Hib 6 completed Not Available [facility] 07/29/2025 13:40:05 polio, unspecified formulation 7 completed Not Available [facility] 07/29/2025 13:40:05 DTP-Hib 7 completed Not Available [facility] 07/29/2025 13:40:05 polio, unspecified formulation 7 completed Not Available [facility] 07/29/2025 13:40:05 [facility]TP[facility]Hib 7 completed [facility] 07/29/[facility]25 13:40:05 Hep B, unspecified formulation 7 completed [facility] 07/29/2025 13:40:05 MMR 7 completed Not [facility] 07/29/2025 13:40:05 polio, unspecified formulation 7 completed [facility] 07/29/2025 13:40:05 DTP-Hib 7 completed Not [facility] 07/29/2025 13:40:05 MMR 1 completed Not Available [facility] 07/29/2025 13:40:05 IPV 1 completed Not [facility] 07/29/2025 13:40:05 DTaP 1 completed [facility] 07/29/2025 13:40:05 Hep A, unspecified formulation 6 completed Not Available [facility] 07/29/2025 13:40:05 Hep A, unspecified formulation 6 completed Not Available [facility] 07/29/2025 13:40:05 HPV, quadrivalent 8 completed Not Available [facility] 07/29/2025 13:40:05 HPV, quadrivalent 8 completed Not Available [facility] 07/29/2025 13:40:05 Tdap 9 completed Not Available [facility] 07/29/2025 13:40:05 Influenza, split virus, quadrivalent, PF 9 completed Not Available [facility] 07/29/2025 13:40:05 MMR 3 completed Not Available [facility] 07/29/2025 13:40:05 Tdap 3 completed Not Available [facility] 07/29/2025 13:40:05 Past Encounters Encounter ID Performer Location Encounter Start Date Encounter Closed Date Diagnosis/Indication Diagnosis SNOMED-CT Code Diagnosis ICD10 Code Diagnosis IMO Codes Diagnosis Note [id number] RAND FANG [facility] ([facility]) [address] [place] [address] 07/29/2025 13:38:30 07/29/2025 14:21:34 Dysuria 62669553 R30.0 79479 Acute abdominal pain 116 130383 R10.9 60709 Discussed with patient options for imaging here at clinic. Due to constant sharp pain will go to ER for further evaluation and treatment. Health Concerns Section Related Observation LastModified by Organization Detai ls LastModified Time None Recorded Concern Status LastModified by Organization Details LastModified Time None Recorded Payers Encounter Date Sequence Insurance Name Policy Number Policy Montoya Covered Member ID Montoya Member ID Guarantor Name 07/29/2025 1 [employer] [id number] Vicki Soler [id number] Vicki Soler Notes Date Note Type Note Provider Name and Address Organization Details Recorded Time 07/29/2025 text/html ROS as noted in the HPI walk [id number] vomiting, diarrhea. Patient denies any recent travel. No known food poisoning. Patient states that she woke this AM feeling bad and then had vomiting and diarrhea multiple times today. No known ill contacts. Abd pain started around the umbilicus and now present in the bilateral abd lower quadrants. Patient rates the pain as a 4-5 at rest and pain is worse with movement, states pain is sharp and constant. Patient states that she has an umbilical hernia and has had her appendix out in the past. LMP 4 weeks ago, on ocp with report of regular periods. RAND FANG [address] [place], [address], [facility] 07/29/2025 14:19:44 OBGyn Episode No OBEpisode recorded.
--- OUTSIDE RECORDS SUMMARY | 2025-09-30 12:49 | XMS_ITS | Data Portability ---
Author Organization [facility] Mad[facility]MadelineMadeline [facility] Address [address] [place] [phone] Care Team Providers Care Value Stream Coach Name Role Phone LIUDMILA PICKETT Primary Care Provider Assessment No assessment recorded. Plan of Treatment Reminders Order Date Submit Date Provider Last Modified By Organization Details Last Modified Time Details Appointments None recorded. Lab urinalysis, dipstick 2024 025 [facility] ([facility]), [address] [place] [address], [phone], 5 14:03:33 test, urine 2024 025 [facility] ([facility]), [address] [place] [address], [phone], 5 14:02:37 rapid flu (A+B), PCR [address]), [address] [place] [address], [phone], 5 08:42:36 Referral None recorded. Procedures None recorded. Surgeries None recorded. Imaging None recorded. Medication Orders benzonatate 200 mg capsule 2024 025 [facility], [address] [address], [address], 5 13:42:49 Tamiflu 6 mg/mL oral suspension 2024 025 [facility], [address], [address], 13:42:51 Patient TargetsNo targets recorded. Patient InstructionsNo instructions recorded. Reason for Referral None Reported. Results Created Date Observation Date Name Description Value Unit Range Abnormal Flag Note LastModifiedBy Organization Detail LastModifiedTime 12/18/19 25 12/18/2024 rapid flu (A+B) , PCR Influenza A positi ve Not Available [facility] ([facility]) [address] [place], [address], 12/18/2024 08:11:22 12/18/1912/18/2024 rapid flu (A+B) , PCR Influenza B negati ve Not Available [facility] ([facility]) [address] [place], [address], 12/18/2024 08:11:22 07/29/2007/29/2025 urina lysis , dipst ick Leukocytes Negati ve Not Available [facility] ([facility]) [address] [place], [address], 07/29/2025 13:53:13 07/29/20 25 07/29/2025 urina lysis , dipst ick Nitrite negati ve Not Available [facility] ([facility]) [address] [place], [address], 07/29/2025 13:53:13 07/29/2007/29/2025 urina lysis , dipst ick Urobilinogen .2 Not Available [facility] ([facility]) [address] [place], [address], 07/29/2025 13:53:13 07/29/20 25 07/29/2025 urina lysis , dipst ick Protein Negati ve Not Available [facility] ([facility]) [address] [place], [address], 07/29/2025 13:53:13 07/29/20 25 07/29/2025 urina lysis , dipst ick pH 5.5 Not Available [facility] ([facility]) [address] [place], [address], 07/29/2025 13:53:13 07/29/20 25 07/29/2025 urina lysis , dipst ick Blood Negati ve Not Available [facility] ([facility]) [address] [place], [address], 07/29/2025 13:53:13 07/29/20 25 07/29/2025 urina lysis , dipst ick Specific [place] 1.030 Not Available [facility] ( [facility]) [address] [place], [address], 07/29/2025 13:53:13 07/29/20 25 07/29/2025 urina lysis , dipst ick Ketone Negati ve Not Available [facility] ([facility]) [address] [place], [address], 07/29/2025 13:53:13 07/29/20 25 07/29/2025 urina lysis , dipst ick Bilirubin Negati ve Not Available [facility] ([facility]) [address] [place], [address], 07/29/2025 13:53:13 07/29/20 25 07/29/2025 urina lysis , dipst ick Glucose Negati ve Not Available [facility] ([facility]) [address] [place], [address], 07/29/2025 13:53:13 07/29/20 25 07/29/2025 urina lysis , dipst ick Appearance Clear Not Available [facility] ([facility]) [address] [place], [address], 07/29/2025 13:53:13 07/29/2007/29/2025 urina lysis , dipst ick Color Yellow Not Available [facility] ([facility]) [address] [place], [address], 07/29/2025 13:53:13 07/29/20 25 07/29/2025 pregn azael test, urine HCG negati ve Not Available [facility] ([facility]) [address] [place], [address], 07/29/2025 13:53:27 Result Notes None recorded. Medical Equipment None Reported. Allergies Allergen ID Allergen Name Allergen Category Reaction Reaction Severity Criticality Documentation Date Start Date Code Code System Note Provider Name and Address Organization Details Recorded Time 79542 tramadol medicatio n itching Not available Not available 12/18/2024 78813 RxNorm ISAI Tony [facility] 08:09:41 Medications Name Sig Start Date Stop Date Status Note LastModified by Organization Details LastModified Time benzonatate 200 mg capsule Take 1 capsule 3 times a day by oral route as needed. 07/29 completed Not Available Not Available Not Available citalopram 10 mg tablet TAKE 1 TABLET BY MOUTH ONCE DAILY active Not Available Not Available No t Available amoxicillin 600 mg-potassiu m clavulanate 42.9 mg/5 mL oral suspension TAKE [...] day by oral route for 5 days. 07/295 completed Not Available Not Available Not Available Jencycla 0.35 mg tablet TAKE 1 TABLET BY MOUTH ONCE DAILY active Not Available Not Available No t Available Vitals Date Recorded Body weight Body mass index (BMI) Body height Oxygen saturation Heart rate Body temperature Systolic And Diastolic Provider Name and Address Organization Details Last Updated DateTime 5 95706.2 3 g 21.1 kg/m2 165.1 cm 98 % 128 /min 100.5 [degF] 120/70 mm[Hg] Beatriz Melissa [facility] 08:14:02 Date Recorded Body height Body mass index (BMI) Body weight Oxygen saturation Heart rate Body temperature Systolic And Diastolic Provider Name and Address Organization Details Last Updated DateTime 5 165.1 cm 22 kg/m2 55972.5 9 g 98 % 96 /min 98 [degF] 116/70 mm[Hg] Beatriz [facility] 13:46:30 Social History Question Answer Notes LastModified by Organizat ion Details LastModified Time Tobacco Smoking Status Never Smoker Beatriz Melissa [facility] 07/29/2025 13:43:35 What Was The Date Of Your Most Recent Tobacco Screening? 07/29/2025 [email or web address] Information not available 07/29/2025 Sex: Unknown Functional Status None recorded. Mental Status None recorded. Family History Nothing Reported. Medical History No medical history recorded. Gynecological HistoryNo gynecological history recorded. Obstetrics History GPAL:G 0 P 0 0 0 0 Immunizations Vaccine Type Date Status Note Provider Nam e and Address Organization Details Recorded Time Hep B, unspecified formulation 6 completed Not Available Replaced by [facility] 07/29/2025 13:40:05 Hep B, unspecified formulation 6 completed Not Available [facility] 07/29/2025 13:40:05 polio, unspecified formulation 6 completed Not Available [facility] 07/29/2025 13:40:05 DTP-Hib 6 completed Not Available [facility] 07/29/2025 13:40:05 polio, unspecified formulation 7 completed Not Available [facility] 07/29/2025 13:40:05 DTP-Hib 7 completed Not Available [facility] 07/29/2025 13:40:05 polio, unspecified formulation 7 completed Not Available [facility] 07/29/2025 13:40:05 DTP-Hib 7 completed Not Available [facility] 07/29/2025 13:40:05 Hep B, unspecified formulation 7 completed Not Available [facility] 07/29/2025 13:40:05 MMR 7 completed [facility] 07/29/2025 13:40:05 polio, unspecified formulation 7 completed Not Available [facility] 07/29/2025 13:40:05 DTP-Hib 7 completed Not Available [facility] 07/29/2025 13:40:05 MMR 1 completed Not Available [facility] 07/29/2025 13:40:05 IPV 1 completed Not Available [facility] 07/29/2025 13:40:05 DTaP 1 completed Not [facility] 07/29/2025 13:40:05 Hep A, unspecified formulation 6 completed Not Available [facility] 07/29/2025 13:40:05 Hep A, unspecified formulation 6 completed Not Available [facility] 07/29/2025 13:40:05 HPV, quadrivalent 8 completed Not Available [facility] 07/29/2025 13:40:05 HPV, quadrivalent 8 completed Not Available [facility] 07/29/2025 13:40:05 Tdap 9 completed Not Available [facility] 07/29/2025 13:40:05 Influenza, split virus, quadrivalent, PF 9 completed Not Available [facility] 07/29/2025 13:40:05 MMR 3 completed Not Available [facility] 07/29/2025 13:40:05 Tdap 3 completed Not Available [facility] 07/29/2025 13:40:05 Past Encounters Encounter ID Performer Location Encounter Start Date Encounter Closed Date Diagnosis/Indication Diagnosis SNOMED-CT Code Diagnosis ICD10 Code Diagnosis IMO Codes Diagnosis Note [id number] RAND HAMILTON [facility] ([facility]) [address] [place] [phone] 12/18/2024 08:04:30 12/18/2024 09:06:18 Fever 639379772 R50.9 Influenza A virus present 4198733078 08 J09.X2 Flu A positive today. Discussed to alternate tylenol/mo cate for fever control. 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 [id number] RAND FANG [facility] ([facility]) [address] [place] [phone] 07/29/2025 13:38:30 07/29/2025 14:21:34 Dysuria 86187638 R30.0 11879 Acute abdominal pain 116 449884 R10.9 33082 Discussed with patient options for imaging here at clinic. Due to constant sharp pain will go to ER for further evaluation and treatment. Health Concerns Section Related Observation LastModified by Organization Detai ls LastModified Time None Recorded Concern Status LastModified by Organization Details LastModified Time None Recorded Advance Directives Directive None Recorded Payers Insurance Date Sequence Insurance Name Policy Number Policy Montoya Covered Member ID Montoya Member ID Guarantor Name 07/29/2025 1 *SELF PAY* Pati garcia Ryder 07/29/2025 1 [place] [id number] Vicki Soler [id number] Vciki Soler Notes Date Note Type Note Provider Name and Address Organization Details Recorded Time 12/18/2024 text/html ROS as noted in the HPI walk inx 2 days fever, nasal congestion, cough, TUTTLE, body aches. Tuesday symptoms. Has been taking tylenol, dayquil, and nyquil. RAND HAMILTON [address] [place] [address], [phone], [facility], [place] 12/18/2024 09:05:33 07/29/2025 text/html ROS as noted in the HPI walk cm1521 vomiting, diarrhea. Patient denies any recent travel. [...] on ocp with report of regular periods. DENNY HOOVER, [facility] [place], [address], [facility], [place] 07/29/2025 14:19:44 OBGyn Episode No OBEpisode recorded.
--- NOTE | 2025-09-30 13:04 | USR_ITS ---
PROCEDURE INFORMATION: Exam: US Pelvis, Transvaginal, Non-Obstetric Exam date and time: 09/30/2025 2:10 PM Age: 30 years old Clinical indication: Pelvic pain; Additional info: Right adnexal and mid pelvic pain TECHNIQUE: Imaging protocol: Real-time transvaginal pelvic (non-obstetric) ultrasound with image documentation. Transvaginal imaging was used for better evaluation of the endometrium, adnexa, and/or cervix. COMPARISON: US transvaginal [id number] 11/27/2024 3:48 PM FINDINGS: Uterus: Uterus is normal. Endometrial stripe is 5 mm. The lower uterus segment shows an echogenic tissue collection within the myometrium 1.1 cm x 1.1 cm x 1.1 cm. This finding was not present on prior examination the uterus measures 6.5 cm x 3.7 cm Right ovary/adnexa: 4 cm x 3.2 cm x 2 cm Left ovary/adnexa: 3.5 cm x 2.8 cm x 2.5 cm. Follicular cysts 1.4 cm x 1.3 cm x 1.4 cm Urinary bladder: Urinary bladder is limited. Intraperitoneal space: No free fluid. US/US transvaginal [id number] IMPRESSION: 1. Echogenic structure in the left side of the uterus. 2. Dominant follicular cyst left ovary 3. Normal exam of the uterus and endometrium 4. Unremarkable right ovary .
--- NOTE | 2025-09-30 13:05 | W.ED.ABDPA2 ---
HPI - Abdominal Pain General: Chief Complaint: Abdominal Pain Stated Complaint: fatigue, n/v, dizzy Time Seen by Provider: 09/30/25 12:59 History of Present Illness: 30-year-old female who presents to the ER with fatigue, nausea vomiting, lightheadedness and right-sided abdominal pain. This has been recurrent around the time of her menstruation for a few months now. Her PCP told her she needs to go see gynecology but she cannot get in there so she came to the emergency room. She said she has had some nausea, vomiting, and diarrhea. She gets lightheaded and feels like she might pass out. Related Data Previous Rx's ?Medication ?Instructions ?Recorded norethindrone 1.5 mg-ethinyl See Rx Instructions .Route 01/11/25 estradiol 30 mcg(21)/iron 75 mg(7) .COMPLEX #84 tabs tablet ([place] 1.5/30 (28)) bupropion HCl 150 mg 24 hr tablet, 150 mg PO QAM #30 tabs 04/17/25 extended release (Wellbutrin XL) citalopram 10 mg tablet 10 mg PO DAILY #30 tabs 04/17/25 ondansetron 8 mg disintegrating 8 mg PO Q6H #14 tabs 07/29/25 tablet diclofenac sodium 50 mg 50 mg PO BID PRN pain #14 tabs 09/04/25 tablet,delayed release fluconazole 150 mg tablet 300 mg (2 x 150 mg) PO .p1uisxt 2 09/04/25 doses #4 tabs ciprofloxacin HCl 500 mg tablet 500 mg PO BID 10 days #20 tabs 09/30/25 diclofenac sodium 50 mg 50 mg PO BID PRN pain #14 tabs 09/30/25 tablet,delayed release metronidazole 500 mg tablet 500 mg PO Q8H 10 days #30 tabs 09/30/25 ondansetron 4 mg disintegrating 4 mg PO Q8H PRN nausea and 09/30/25 tablet vomiting #10 tabs Allergies Allergy/AdvReac Type Severity Reaction Status Date / Time tramadol Allergy ADR-Itching Verified 09/04/25 15:14 Review of Systems Narrative: Constitutional symptoms: Negative except as documented in HPI. Skin symptoms: Negative except as documented in HPI. Eye symptoms: Negative except as documented in HPI. ENMT symptoms: Negative except as documented in HPI. Respiratory symptoms: Negative except as documented in HPI. Cardiovascular symptoms: Negative except as documented in HPI. Gastrointestinal symptoms: Negative except as documented in HPI. Genitourinary symptoms: Negative except as documented in HPI. Musculoskeletal symptoms: Negative except as documented in HPI. Neurologic symptoms: Negative except as documented in HPI. Psychiatric symptoms: Negative except as documented in HPI. Endocrine symptoms: Negative except as documented in HPI. [facility] ED PFSH: Medical History (Updated 09/30/25 @ 14:46 by Kellen Vergara MD) Anxiety and depression No pertinent past medical history neghx: htn,dm,thyroid,dvt/pe PCP: None H/O herpes genitalis (~2018) one outbreak History of fracture of nasal bone Surgical History History of nasal septoplasty S/P laparoscopic appendectomy (02/24/21) Complete tear of wrist ligament (~2014) Right Family History Grandfather No problems noted. Grandmother Stroke Maternal Diabetes Maternal Hypercholesteremia Maternal Sister No problems noted. Brother Hypertension x2 Father Hypertension Mother Hypercholesteremia Thyroid disease Denies family history of Colon cancer Ovarian cancer Heart disease Breast cancer Uterine cancer Social History Smoking and tobacco/nicotine status: never used tobacco/nicotine Female Reproductive History: Spontaneous abortions: No Physical Exam Narrative: EXAM NARRATIVE: General: Alert, no acute distress. Skin: Warm, dry. Head: Normocephalic, atraumatic. Neck: Supple, trachea midline. Eye: Extraocular movements are intact. Ears, nose, mouth and throat: Tacky oral mucosa Cardiovascular: Regular, Normal peripheral perfusion. Respiratory: Lungs are clear to auscultation, respirations are non-labored, breath sounds are equal, Symmetrical chest wall expansion. Gastrointestinal: Soft, some right adnexal pain, Non distended Musculoskeletal: Normal ROM, no deformity. Neurological: Alert and oriented, No focal neurological deficit observed. Psychiatric: Cooperative, appropriate mood & affect. Course Vital Signs: Vital signs: Vital Signs Temperature 97.6 F 09/30/25 12:24 Pulse Rate 82 09/30/25 13:36 Respiratory Rate 17 09/30/25 12:24 Blood Pressure 109/66 09/30/25 13:36 Pulse Oximetry 99 09/30/25 13:36 Oxygen Delivery Me thod Room Air 09/30/25 12:24 MDM - Abdominal Pain Medical Decision Making Medical decision making Patient's reason for coming to the emergency room: Abdominal pain, dizziness Social determinants: Patient is employed. I reviewed the patient's medical record. Patient has a history of anxiety and depression. I reviewed the patient's current home meds Patient has listed citalopram and bupropion as home meds along with control. Alternate historians: None Differential diagnosis: including but not limited to and based on the above HPI, review of systems and physical exam: Orders placed to evaluate differential diagnosis based on the above differential, HPI and physical exam Lab Review: Laboratory results were reviewed and interpreted by myself the emergency room physician. Mild leukocytosis. No anemia. No renal failure. Urine test is negative. Urinalysis is positive for infection 11-20 whites, 3+ bacteria and leukocyte esterase Ultrasound transvaginal pelvis: No acute process. This was reviewed and interpreted by myself the emergency room physician. I also reviewed the radiology report. Assessment of risk: Level of risk: Low risk patient. Hospitalization considerations: No evidence for anything to admit for today. Reexamination: Patient remained stable. No increased work of breathing. No altered mental status. No focal motor deficits. Assessment and plan: Urinary tract infection Abdominal pain Dehydration ? IV Rocephin, IV fluids - Discharged home - Discussed plan with patient. Answered any questions. - Evaluation and treatment of this problem were appropriate in the emergency setting. Lab Data 09/30/25 13:19 09/30/25 13:19 Labs/Radiology: Laboratory Results WBC 12.90 10^3/uL (3.29-11.43) H 09/30/25 13:19 RBC 4.63 10^6/uL (3.85-5.65) 09/30/25 13:19 Hgb 14.10 g/dL (11.27-16.99) 09/30/25 13:19 Hct 42.2 % (36-47) 09/30/25 13:19 MCV 91.1 fl (85-98) 09/30/25 13:19 MCH 30.5 pg (27-33) 09/30/25 13:19 MCHC 33.4 g/dL (30-55) 09/30/25 13:19 RDW 12.4 % (12.1-15.1) 09/30/25 13:19 Plt Count 259 10^3/cmm (157-399) 09/30/25 13:19 MPV 11.1 fL (7.4-10.4) H 09/30/25 13:19 Neut % (Auto) 84.0 % 09/30/25 13:19 Lymph % (Auto) 12.4 % 09/30/25 13:19 [place] % (Auto) 2.6 % 09/30/25 13:19 Eos % (Auto) 0.4 % 09/30/25 13:19 Baso % (Auto) 0.2 % 09/30/25 13:19 Neut # (Auto) 10.84 10^3/uL (1.8-7.7) H 09/30/25 13:19 Lymph # (Auto) 1.6 10^3/uL (0.8-4.8) 09/30/25 13:19 [place] # (Auto) 0.3 10^3/uL (0.2-0.9) 09/30/25 13:19 Eos # (Auto) 0.1 10^3/uL (0.0-0.8) 09/30/25 13:19 Baso # (Auto) 0.0 10^3/uL (0.0-0.1) 09/30/25 13:19 Nucleated RBC % (auto) 0 % 09/30/25 13:19 Nucleated RBCs # 0.0 /100WBC 09/30/25 13:19 Sodium 136 mmol/L (136-145) 09/30/25 13:19 Potassium 4.0 mmol/L (3.5-5.1) 09/30/25 13:19 Chloride 101 mmol/L (98-107) 09/30/25 13:19 Carbon Dioxide 27 mmol/L (22-29) 09/30/25 13:19 Anion Gap 12.0 (5-19) 09/30/25 13:19 BUN 11 mg/dL (6-20) 09/30/25 13:19 Creatinine 0.7 mg/dL (0.5-0.9) 09/30/25 13:19 GFR Calculation 98.9 mL/min (90-130) 09/30/25 13:19 Glucose 98 mg/dL (65-115) 09/30/25 13:19 Calculated Osmolality 281 mOsm/kg (285-295) L 09/30/25 13:19 Calcium 9.1 mg/dL (8.5-10.5) 09/30/25 13:19 Total Bilirubin 0.4 mg/dL (0.15-1.2) 09/30/25 13:19 AST 15 U/L (0-32) 09/30/25 13:19 ALT 19 U/L (0-33) 09/30/25 13:19 Alkaline Phosphatase 65 U/L (35-105) 09/30/25 13:19 C-Reactive Protein 3.0 mg/L (0.0-4.9) 09/30/25 13:19 Total Protein 7.7 g/dL (6.6-8.7) 09/30/25 13:19 Albumin 4.7 g/dL (3.5-5.2) 09/30/25 13:19 Globulin 3.0 g/dL (1.3-4.6) 09/30/25 13:19 Lipase 25 U/L (13-60) 09/30/25 13:19 TSH 1.20 uIU/mL (0.27-4.20) 09/30/25 13:19 HCG, Qual Negative (Negative) 09/30/25 13:19 Urine Color Dark yellow (Yellow) A 09/30/25 13:29 Urine Appearance Turbid (CLEAR) A 09/30/25 13:29 Urine pH 5.5 (5-7) 09/30/25 13:29 Ur Specific [place] 1.032 (1.005-1.030) H 09/30/25 13:29 Urine Protein 2+ (Negative) A 09/30/25 13:29 Urine Glucose (UA) Negative (Normal) 09/30/25 13:29 Urine Ketones Trace (Negative) 09/30/25 13:29 Urine Blood Negative (Negative) 09/30/25 13:29 Urine Nitrate Negative (Negative) 09/30/25 13:29 Urine Bilirubin 1+ (Negative) H 09/30/25 13:29 Urine Urobilinogen 1.0 mg/dL (Negative) 09/30/25 13:29 Ur Leukocyte Esterase Trace (Negative) A 09/30/25 13:29 Urine RBC 3-5 /hpf (0-2) 09/30/25 13:29 Urine WBC 11-20 /hpf (0-5) H 09/30/25 13:29 Ur Squamous Epith Cells 11-20 /hpf (0-5) H 09/30/25 13:29 Amorphous Sediment 3+ /hpf 09/30/25 13:29 Urine Bacteria 3+ /hpf (NONE) H 09/30/25 13:29 Hyaline Casts 8.67 /lpf 09/30/25 13:29 All radiology interpretation(s) finalized by discharge Discharge Plan Discharge Patient Disposition: Home Clinical Impression: Urinary tract infection, Abdominal pain, Dehydration Condition: Stable Prescriptions: New metronidazole 500 mg tablet 500 mg PO Q8H 10 Days Qty: 30 0RF ciprofloxacin HCl 500 mg tablet 500 mg PO BID 10 Days Qty: 20 0RF diclofenac sodium 50 mg tablet,delayed release (DR/EC) 50 mg PO BID PRN (Reason: pain) Qty: 14 0RF ondansetron 4 mg tablet,disintegrating 4 mg PO Q8H PRN (Reason: nausea and vomiting) Qty: 10 0RF No Action bupropion HCl [Wellbutrin XL] 150 mg tablet extended release 24 hr 150 mg PO QAM Qty: 30 5RF citalopram 10 mg tablet 10 mg PO DAILY Qty: 30 5RF diclofenac sodium 50 mg tablet,delayed release (DR/EC) 50 mg PO BID PRN (Reason: pain) Qty: 14 0RF Rx Instructions: Take with food. fluconazole 150 mg tablet 300 mg PO .d6ywmls Qty: 4 0RF Rx Instructions: Take 2 tablets on day one and 2 tablets again on day 14. norethindrone-e.estradiol-iron [Pato Fe 1.5/30 (28)] 1.5 mg-30 mcg (21)/75 mg (7) tablet See Rx Instructions .ROUTE .COMPLEX Qty: 84 3RF Dose Instruction: Take 1 tablet by mouth once daily Rx Instructions: Take 1 tablet by mouth once daily ondansetron 8 mg tablet,disintegrating 8 mg PO Q6H Qty: 14 0RF Rx Instructions: Take 1/2-1 tab every 6 hours as needed for nausea and vomiting Discharge Orders: Discharge ED (Routine); Ordered 09/30/25 Ordered By: Kellen Vergara Referrals: Sage Tolentino DO [Primary Care Provider, Family Practice] Discharge Diet: Usual diet Discharge Activity: Increase activity as tolerated Patient Instructions: Urinary Tract Infection in Women (ED), Abdominal Pain (ED), Opioid Safety, Pain Management, Patient Portal & Stefani Instructions Activity Restrictions/Additional Instructions: You do need to follow-up with gynecology as soon as possible. Thank you for choosing [facility] for your healthcare needs today. You have been screened and evaluated and felt safe for discharge. Health conditions do change or evolve sometimes and as such it is important that you follow up with your Primary Doctor to be re checked, 3-5 days is a general good time frame for follow up. 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
[2025-09-30 13:28] LABS: Hematocrit 42.2 % (36-47); Hemoglobin 14.10 g/dL (11.27-16.99); Mean Corpuscular HGB Conc 33.4 g/dL (30-55); Mean Corpuscular Hemoglobin 30.5 pg (27-33); Mean Corpuscular Volume 91.1 fl (85-98); Nucleated Red Blood Cells % 0 %; Platelet Count 259 10^3/cmm (157-399); Red Blood Count 4.63 10^6/uL (3.85-5.65); White Blood Count 12.90 10^3/uL (3.29-11.43)
[2025-09-30 13:36] VITALS: BP 109/66; PULSE 82; O2SAT 99
[2025-09-30 13:42] LABS: HCG, Serum Qual Negative (Negative)
[2025-09-30 13:51] LABS: Glucose Urine UA Negative (Normal); Nitrate Urine Negative (Negative)
[2025-09-30 13:56] LABS: Alanine Aminotransferase 19 U/L (0-33); Albumin Level 4.7 g/dL (3.5-5.2); Alkaline Phosphatase 65 U/L (35-105); Anion Gap 12.0 (5-19); Aspartate Amino Transferase 15 U/L (0-32); Blood Urea Nitrogen 11 mg/dL (6-20); Calcium 9.1 mg/dL (8.5-10.5); Carbon Dioxide 27 mmol/L (22-29); Chloride 101 mmol/L (98-107); Globulin 3.0 g/dL (1.3-4.6); Glucose 98 mg/dL (65-115); Lipase 25 U/L (13-60); Osmolality Calculated 281 mOsm/kg (285-295); Potassium 4.0 mmol/L (3.5-5.1); Sodium 136 mmol/L (136-145); Thyroid Stimulating Hormone 1.20 uIU/mL (0.27-4.20); Total Protein 7.7 g/dL (6.6-8.7)
[2025-09-30] MEDS: ondansetron 2 mg/ML SDV 2 mL 4 MG IVP (14:03)
[2025-09-30 14:15] LABS: Specific Gravity, Urine 1.032 (1.005-1.030); UA Slide Review UA Slide Review Perf
[2025-09-30] MEDS: cefTRIAXone 1,000 mg SDV 1000 MG IVP (14:35)
[2025-09-30 15:47] VITALS: BP 99/60; PULSE 83; O2SAT 100
== END 2025-09-30 15:53 | disposition home or self-care (01) ==
PROVIDERS: Emergency Medicine; Emergency Provider Emergency Medicine; PCP Family Medicine
DX: N39.0 Urinary tract infection, site not specified (principal); R10.9 Unspecified abdominal pain; E86.0 Dehydration
CPT/HCPCS: 76830; 80053; 81001; 83690; 84443; 84703; 85025; 86140; 96374; 96375; 99284; J0696; J2405; J7030